=== PATIENT | male | born 1950 | race Caucasian/White ===

== ENCOUNTER → 2019-11-12 10:15 | Outpatient (CLI) | payer MEDICARE, OTHER, SELFPAY ==
--- NOTE | 2019-11-12 10:17 | DI.US.S_ITS ---
PROCEDURE: US RENAL COMPLETE INDICATIONS: STRESS INCONTINENCE TECHNIQUE: Real-time scanning was performed of the kidneys and bladder, with image documentation. COMPARISON: None. FINDINGS: Kidneys: Kidneys are normal in size. Right kidney measures 11.2 cm long; left kidney measures 10.3 cm long. Right renal cortical thickness is 1.2 cm; left renal cortical thickness is 1.3 cm. Renal cortical echotexture is normal. No hydronephrosis or nephrolithiasis. No suspicious solid mass lesions. Bilateral renal cysts are noted measuring up to 1.4 cm on the right and up to 1.9 cm on the left. Bladder: Pre-void bladder volume is 288 mL. Post-void residual is zero mL. Pre-void images demonstrate no intraluminal masses or stones. On pre-void images, both of the ureteral jets are noted with color Doppler interrogation. (Of note, ureteral jets may not be detectable in up to 25% of cases due to insufficient differences in specific gravity between ureteral and bladder urine). Miscellaneous: No free pelvic fluid. IMPRESSION: Few bilateral simple appearing renal cysts as above No hydronephrosis Dictated by: Torres Rothman M.D. on 11/12/2019 at 11:36 Approved by: Torres Rothman M.D. on 11/12/2019 at 11:38
== END ==
PROVIDERS: Family Provider Family Medicine; PCP Student in an Organized Health Care Education/Training Program; Referring Provider Student in an Organized Health Care Education/Training Program; Visit Provider Student in an Organized Health Care Education/Training Program
DX: N39.3 Stress incontinence (female) (male) (principal); N28.1 Cyst of kidney, acquired
CPT/HCPCS: 76770

== ENCOUNTER → 2020-02-01 14:40 | Outpatient (CLI) | payer MEDICARE, OTHER, SELFPAY ==
[2020-02-03 09:39] LABS: COVID19 Sendout Not Detected (Not Detect)
== END ==
PROVIDERS: Family Provider Family Medicine; PCP Student in an Organized Health Care Education/Training Program; Visit Provider Physician Assistant
DX: Z11.59 Encounter for screening for other viral diseases (principal)
CPT/HCPCS: 87635

== ENCOUNTER 2020-02-04 11:59 | Day surgery (SDC) | payer MEDICARE, OTHER, SELFPAY ==
[2020-02-04] VITALS (10 sets, daily range): BP systolic 141–168; BP diastolic 88–104; PULSE 60–68; RESP 12–16; TEMP 36.4–36.6; O2SAT 93–98; BMI 25.1
[2020-02-04] MEDS: LACTATED RINGERS 1,000 ML 200 ML IV (12:12)
--- NOTE | 2020-02-04 13:10 | PM.HP.1 ---
History of Present Illness History of Present Illness Date Patient Seen: 02/04/20 Time Patient Seen: 13:10 Chief complaint: SDC Narrative: The patient presents for colorectal sreening. They had a previous colonoscopy normal 10 years ago. No personal or family history of colon cancer. On further history denies any recent gastrointestinal symptoms. No nausea, vomiting, abdominal pain, loss of appetite, unexplained weight loss, change in bowel habits, diarrhea, constipation, melena, hematochezia, or bright red blood per rectum. Patient History Medical History Actinic keratosis (Resolved) Depression (Acute) Hyperlipidemia (Acute) Hypertension (Acute) Hypothyroidism (Chronic) IPMN (intraductal papillary mucinous neoplasm) (Resolved) Obstructive sleep apnea (Chronic) Pancreatitis (Resolved 10/2015) Prostate cancer (Resolved) Seizure (Acute) Surgical History History of strabismus surgery (Resolved) History of surgery on arm (Resolved) Hx of appendectomy (Resolved) Hx of hernia repair (Resolved) Hx of surgical procedure (Resolved 03/2013) Status post hemorrhoidectomy Status post radical cystoprostatectomy Family & Social History Family History Father Heart disease Mother Cancer Sister Multiple sclerosis Social History: household members spouse Tobacco & Substance use: Smoking Status Never smoker alcohol intake current Substance Use Type does not use Meds Home Medications and Allergies Home Medications Medication Instructions Recorded Confirmed Type [id number] PO cap 03/31/18 11/04/19 History 6,000-19,000-30,000 unit capsule,delayed rel duloxetine 30 mg capsule,delayed 30 mg PO QDAY #90 cap 01/06/19 02/04/20 Rx release amlodipine 10 mg tablet 10 mg PO DAILY #90 tab 08/25/19 02/04/20 Rx omeprazole 20 mg capsule,delayed 20 mg PO DAILY 08/25/19 02/04/20 History release levothyroxine 125 mcg tablet 125 mcg PO QDAY #90 tab 09/21/19 02/04/20 Rx lamotrigine 150 mg tablet See Rx Instructions PO BID #135 tab 10/14/19 02/04/20 Rx lisinopril 20 mg tablet 20 mg PO DAILY #90 tab 12/01/19 02/04/20 Rx oxybutynin chloride 5 mg 5 mg PO DAILY #90 tab 12/21/19 02/04/20 Rx tablet,extended release 24 hr Allergies Allergy/AdvReac Type Severity Reaction Status Date / Time grass pollen-perennial rye, Allergy Unknown Verified 02/04/20 12:14 standar [grass poll-perennial rye,std] TREES Allergy Unknown Uncoded 02/04/20 12:14 Review of Systems Review of Systems Narrative: A 10 point review of systems is negative except as noted in the HPI Exam Vital Signs (past 8 hours): - 02/04/20 12:20 Temperature 97.8 F Pulse Rate 60 Respiratory Rate 16 Blood Pressure 168/88 H Pulse Oximetry 98 Oxygen Delivery Method Room Air Narrative Exam Narrative: General-no acute distress, well nourished HEENT-moist mucous membranes, no scleral icterus Neck-supple, no lymphadenopathy Chest- non labored respirations, clear to auscultation bilaterally Cardiac-regular rate no peripheral edema Abdomen-soft, nontender, non distended Extremities-warm, well perfused Neurological-alert and oriented, no focal deficits Assessment & Plan Assessment and plan (1) Screening for colon cancer: Status: Acute Assessment & Plan narrative: The patient requires colorectal screening and colonoscopy is recommended. Technical details were discussed. Risks, benefits, alternatives explained. Risks including but not limited to myocardial infarction, aspiration, bleeding, pain, missed lesion, incomplete examination, need for further radiographic studies, colonic perforation, and need for major abdominal surgery were discussed. All questions were answered to their satisfaction, and they are in agreement with this plan.
[2020-02-04] MEDS: MIDAZOLAM 5 MG/5 ML VIAL IV (13:38)
--- NOTE | 2020-02-04 13:38 | PM.OP.ENDO ---
Operative Date/Time/Diagnoses Date of procedure: 02/04/20 Time of procedure: 13:38 Pre-op diagnosis: Screening colonoscopy Post-op diagnosis: same Procedure & Clinicians Study performed: Colonoscopy Same procedure as scheduled: Yes Indications: 69-year-old male presents for a routine screening colonoscopy Surgeon: Ras Calvillo Procedure Notes SCOAP/Timeout: Performed Procedure in detail: Patient placed in left lateral recumbent position. Time out was performed. Procedural sedation was administered with Versed and Fentanyl. Examination began with a thorough inspection of the perianal area there was no evidence of fissures, fistulae, external hemorrhoids or cutaneous malignancy. The colonoscopy scope was then placed into the rectum the the lumen was insufflated with air. The scope was carefully advanced forward. Ultimately the cecum was intubated and confirmed by identification of the ileocecal valve and the confluence of the taenia. The scope was then slowly withdrawn examining colon thoroughly in all directions. In the rectum the rectal columns were identified and retroflexion of the scope was performed for inspection of the distal rectum and anal canal. The colonoscopy was notable for the followin. Quality of the preparation-fair 2. Sigmoid diverticulosis 3. No masses or polyps Scope withdrawal time: 7 Sedation minutes: 20 Findings: diverticulosis Specimen(s): none sent Complications: none Impression: Diverticulosis Post-procedure Recommendations: Colonscopy in 10 years Disposition: same day surgery
[2020-02-04] MEDS: fentaNYL 250 MCG/5 ML INJ IV (13:39)
--- NOTE | 2020-02-04 13:59 | SUR.PHASEI ---
Patient denies pain/nausea. Tolerating po. Abdomen soft. VSS.
--- NOTE | 2020-02-04 14:56 | SUR.PHASEII ---
Assumed care from Silvia for transportation out, d/c instructions discussed with both pt and , both vopiced an understanding, pt left in stable condition.
== END 2020-02-04 14:40 | disposition home or self-care (01) ==
PROVIDERS: Family Provider Family Medicine; PCP Student in an Organized Health Care Education/Training Program; Referring Provider Student in an Organized Health Care Education/Training Program; Visit Provider Surgery
PROC: 0DJD8ZZ Inspection of Lower Intestinal Tract, Via Natural or Artificial Opening Endoscopic (ICD-10-PCS; CPT 45378; principal; 2020-02-04 13:00)
DX: Z12.11 Encounter for screening for malignant neoplasm of colon (principal); F32.9 Major depressive disorder, single episode, unspecified; E78.5 Hyperlipidemia, unspecified; I10 Essential (primary) hypertension; G47.33 Obstructive sleep apnea (adult) (pediatric); R56.9 Unspecified convulsions; K57.30 Diverticulosis of large intestine without perforation or abscess without bleeding
CPT/HCPCS: G0121; 99152; J2250; J3010

== ENCOUNTER → 2020-06-29 08:30 | Outpatient (CLI) | payer MEDICARE, OTHER, SELFPAY ==
[2020-06-29 12:00] LABS: COVID19 -Nasal RAPID Negative (Negative)
== END ==
PROVIDERS: Family Provider Family Medicine; PCP Student in an Organized Health Care Education/Training Program; Visit Provider Nurse Practitioner
DX: Z20.822 Contact with and (suspected) exposure to COVID-19 (principal)
CPT/HCPCS: 87635; C9803

== ENCOUNTER 2020-07-27 11:36 | Emergency (ER) | payer MEDICARE, OTHER, SELFPAY ==
[2020-07-27 11:40] VITALS: BP 171/89; PULSE 67; RESP 14; TEMP 36.6; O2SAT 97; BMI 25.1
[2020-07-27 11:41] VITALS: O2SAT 99
[2020-07-27 11:42] VITALS: BP 171/89; PULSE 82; O2SAT 98
[2020-07-27 11:56] LABS: Bacteria Urine None Seen; WBC Urine None Seen (0-5/HPF)
[2020-07-27 11:58] LABS: Appearance Urine UA CLEAR; Bilirubin Urine UA NEGATIVE (NEGATIVE); Color Urine UA YELLOW; Glucose Urine UA NEGATIVE (Negative); Ketones Urine UA NEGATIVE (NEGATIVE); Leukocyte Esterase Urine UA NEGATIVE (NEGATIVE); Nitrite Urine UA NEGATIVE (Negative); Occult Blood Urine UA 3+ (Negative); Protein Urine UA NEGATIVE (Negative); Urobilinogen Urine UA 0.2 E.U./dL (0.2); pH Urine UA 6.5 (4.5-8.0)
--- NOTE | 2020-07-27 12:00 | ED.MALEGU ---
HPI - Male Genitourinary <RAJESH Hope - Last Filed: 07/27/20 15:38> General Chief complaint: Urogenital-Male Stated complaint: Blood in urine, sent by physician Time Seen by Provider: 07/27/20 11:39 Source: patient Mode of arrival: Ambulatory Limitations: no limitations History of Present Illness HPI Narrative: The patient is a 69-year-old male nonsmoker with history of hypertension, prostate CA, sleep apnea who presents with a chief complaint of blood in his urine. This is been going on for the past several days. He states that he notices overall generally decreased urine output, where he urinates water twice during the day. He states he does not see blood in those urinations, but when urinates that night his urine turns bloody. He denies any dysuria urgency or frequency, denies any flank or back pain, any fevers nausea vomiting or diarrhea. He states he saw a urologist approximately 30 years ago, is not exactly sure why, later admits to history of prostate cancer and states that might be why he saw a urologist. Related Data Home Medications Medication Instructions Recorded Confirmed [id number]-ewsvxmhz-cvwtlji PO cap 03/31/18 07/28/20 6,000-19,000-30,000 unit capsule,delayed rel Previous Rx's Medication Instructions Recorded levothyroxine 125 mcg tablet 125 mcg PO QDAY #90 tab 09/21/19 lisinopril 20 mg tablet 20 mg PO DAILY #90 tab 12/01/19 oxybutynin chloride 5 mg 5 mg PO DAILY #90 tab 12/21/19 tablet,extended release 24 hr duloxetine 30 mg capsule,delayed 30 mg PO QDAY #90 cap 02/26/20 release amlodipine 10 mg tablet 10 mg PO DAILY #90 tab 03/01/20 omeprazole 20 mg capsule,delayed 20 mg PO DAILY #90 cap 03/01/20 release lamotrigine 150 mg tablet See Rx Instructions PO BID #135 tab 06/07/20 Allergies Allergy/AdvReac Type Severity Reaction Status Date / Time grass pollen-perennial rye, Allergy Unknown Verified 07/28/20 11:23 standar [grass poll-perennial rye,std] TREES Allergy Unknown Uncoded 07/28/20 11:23 Patient History <RAJESH Hope - Last Filed: 07/27/20 15:38> Medical History (Updated 07/27/20 @ 14:25 by RAJESH Hope) Actinic keratosis Depression Hyperlipidemia Hypertension Hypothyroidism IPMN (intraductal papillary mucinous neoplasm) Obstructive sleep apnea Pancreatitis (10/2015) Prostate cancer Seizure Surgical History History of strabismus surgery History of surgery on arm Hx of appendectomy Hx of hernia repair Hx of surgical procedure (03/2013) Status post hemorrhoidectomy Status post radical cystoprostatectomy Family History Father Heart disease Mother Cancer Sister Multiple sclerosis Social History household members: spouse Smoking Status: Never smoker alcohol intake: current substance use type: does not use Smoking Status: Never smoker Substance Use Type: does not use Exam <RAJESH Hope - Last Filed: 07/27/20 15:38> Initial Vital Signs Initial Vital Signs: Vital Signs Temperature 97.9 F 07/27/20 11:40 Pulse Rate 67 07/27/20 11:40 Respiratory Rate 14 07/27/20 11:40 Blood Pressure 171/89 H 07/27/20 11:40 Pulse Oximetry 97 07/27/20 11:40 <Becky Amaral DO - Last Filed: 07/28/20 19:10> Initial Vital Signs Initial Vital Signs: Vital Signs Temperature 97.9 F 07/27/20 11:40 Pulse Rate 67 07/27/20 11:40 Respiratory Rate 14 07/27/20 11:40 Blood Pressure 171/89 H 07/27/20 11:40 Pulse Oximetry 97 07/27/20 11:40 Course <RAJESH Hope - Last Filed: 07/27/20 15:38> Orders Ordered: Discontinued Medications Sodium Chloride (Normal Saline 0.9%) 1,000 mls @ 1,000 mls/hr IV BOLUS ONE Stop: 07/27/20 12:56 Last Infusion: 07/27/20 13:13 Dose: 0 mls/hr Documented by: Admin: 07/27/20 12:07 Dose: 1,000 mls/hr Documented by: FLORINA Vital Signs Vital signs: Vital Signs - 8 hr 07/27/20 11:40 07/27/20 11:41 07/27/20 11:42 Temperature 97.9 F Pulse Rate 67 82 Respiratory Rate 14 Blood Pressure 171/89 H 171/89 H Pulse Oximetry 97 99 98 07/27/20 14:31 Temperature Pulse Rate 60 Respiratory Rate 16 Blood Pressure 143/81 H Pulse Oximetry 97 <Becky Amaral DO - Last Filed: 07/28/20 19:10> Orders Ordered: Discontinued Medications Sodium Chloride (Normal Saline 0.9%) 1,000 mls @ 1,000 mls/hr IV BOLUS ONE Stop: 07/27/20 12:56 Last Infusion: 07/27/20 13:13 Dose: 0 mls/hr Documented by: Admin: 07/27/20 12:07 Dose: 1,000 mls/hr Documented by: FLORINA Vital Signs Vital signs: Vital Signs - 8 hr 07/27/20 11:40 07/27/20 11:41 07/27/20 11:42 Temperature 97.9 F Pulse Rate 67 82 Respiratory Rate 14 Blood Pressure 171/89 H 171/89 H Pulse Oximetry 97 99 98 07/27/20 14:31 Temperature Pulse Rate 60 Respiratory Rate 16 Blood Pressure 143/81 H Pulse Oximetry 97 MDM - Male Genitourinary <HERMILO Hope-BC - Last Filed: 07/27/20 15:38> Lab Data Result diagrams: 07/27/20 12:02 07/27/20 12:02 Labs: Lab Results 07/27/20 07/27/20 07/27/20 Range/Units 11:54 12:02 12:02 WBC 3.1 L (4.5-11.0) X10^3/uL RBC 4.77 (4.5-5.9) X10^6/uL Hgb 14.1 (13.5-17.5) g/dL Hct 42.0 (41-53) % MCV 88.1 (80-100) fL MCH 29.5 (26-34) PG MCHC 33.5 (30-36) % RDW 13.3 (11.6-14.8) % Plt Count 167 (150-400) X10^3/uL Neut % (Auto) 57.3 (50-75) % Lymph % (Auto) 31.8 (25-40) % Wells % (Auto) 7.9 (3-14) % Eos % (Auto) 2.4 (2-4) % Baso % (Auto) 0.6 (0-2) % Neut # (Auto) 1800 (8197-0319) /uL Lymph # (Auto) 1000 L (2718-5666) /uL Wells # (Auto) 200 (0-900) /uL Eos # (Auto) 100 (0-450) /uL Baso # (Auto) 0 (0-100) /uL Sodium 139 (137-145) mmol/L Potassium 3.5 (3.4-5.1) mmol/L Chloride 106 (98-107) mmol/L Carbon Dioxide 28 (22-32) mmol/L BUN 14 (9-20) mg/dL Creatinine 0.93 (0.66-1.25) mg/dL Estimated GFR > 60.0 (>60) mL/min BUN/Creatinine Ratio 15.1 (6-22) Glucose 263 H (80-110) mg/dL Calcium 9.0 (8.4-10.2) mg/dL Total Bilirubin 0.6 (0.2-1.3) mg/dL AST 26 (17-59) IU/L ALT 29 (<50) IU/L Alkaline Phosphatase 106 (38-126) U/L Total Protein 7.0 (6.3-8.2) g/dL Albumin 4.0 (3.5-5.0) g/dL Globulin 3.0 (1.7-4.1) g/dL Albumin/Globulin Ratio 1.3 (1.0-2.8) Urine Color Yellow Urine Appearance Clear Urine pH 6.5 (4.5-8.0) Ur Specific [place] 1.010 (1.000-1.035) Urine Protein Negative (Negative) Urine Glucose (UA) Negative (Negative) g/dL Urine Ketones Negative (NEGATIVE) Urine Occult Blood 3+ H (Negative) Urine Nitrate Negative (Negative) Urine Bilirubin Negative (NEGATIVE) Urine Urobilinogen 0.2 (0.2) E.U./dL Ur Leukocyte Esterase Negative (NEGATIVE) Urine RBC 10-30/hpf H (0-5/HPF) Urine WBC None seen (0-5/HPF) Urine Bacteria None seen (None) Ur Culture Indicated? Cult not indicated Imaging Data CT scan - abdomen/pelvis: Radiologist's Impression: [address] [place] [id number] Scan ReportSigned Patient: Isac Mclean AMR#: [id number]: 1950Acct:[id number]/Sex: 69 / MDate of Service: 07/27/20Loc: EDAccession Number: [id number] Procedure: CT kidney ureter bladder (KUB) Ordering Provider: Becky Tavarez [employer] LAW CLERK-BC PROCEDURE: CT KIDNEY URETER BLADDER (KUB) INDICATIONS: hematuria, hx prostate ca TECHNIQUE: Noncontrast 5 mm thick sections acquired from the diaphragms to the symphysis. 5 mm thick coronal and sagittal reformats were then performed. For radiation dose reduction, the following was used: automated exposure control, adjustment of mA and/or kV according to patient size. COMPARISON: [facility], CT, ABDOMEN/PELVIS WITH CONTRAST, 10/31/2015, 13:56. [facility], US, US RENAL COMPLETE, 11/12/2019, 10:26. CT, ABDOMEN/PELVIS WITH CONTRAST, 01/13/2016, 14:16. CT, ABDOMEN/PELVIS WITH CONTRAST, 12/03/2015, 22:21. FINDINGS: Image quality: Excellent. Lung bases: Lung bases are clear. Heart size is normal. Small hiatal hernia. Urinary system: Both kidneys are normal in size. There is a 2 mm stone in the inferior pole of the right kidney. No hydronephrosis or perinephric fat stranding. Bilateral renal cysts. No ureteral stones. Both ureters appear nondilated. Bladder wall thickness is normal; no calcified bladder stones. Prostate is absent. There is a penile prosthesis. Other solid organs: Liver is normal in size. There is pneumobilia. Gallbladder is surgically absent. Question of rib postprocedure. Pancreas is somewhat atrophic. Spleen is normal in size. No adrenal nodules. Peritoneum and bowel: Unenhanced bowel loops demonstrate normal wall thickness and caliber. A moderate amount of stool in colon. No free fluid or air. Nodes and vessels: No retroperitoneal or mesenteric adenopathy by size criteria. Aorta and inferior vena cava are normal in caliber. Abdominal wall: No ventral hernias. Pelvis: No free pelvic fluid. No inguinal hernias or adenopathy. Bones: No suspicious bony lesions. No vertebral body compression fractures. IMPRESSION: 1. A 2 mm nonobstructing stone is seen in the inferior pole of the right kidney. No hydronephrosis. 2. Bilateral renal cysts. 3. Prostatectomy. A penile prosthesis is present 4. Cholecystectomy. Question of Whipple's procedure. There is pneumobilia. 5. A moderate amount stool in colon. Dictated by: Zane Rivera M.D. on 07/27/2020 at 12:56 Approved by: Zane Rivera M.D. on 07/27/2020 at 13:39 MDM Narrative Medical decision making narrative: The patient is a 69-year-old male who presents with a chief complaint of hematuria at night for the past few days. He states no hematuria during the daytime. Bladder scan showed he was not retaining any fluid. Lab work was grossly normal, normal renal function noted With creatinine of 0.9. Urine has no signs of infection, no nitrates leukocyte esterase. Help with the patient's history of cancer, CT was obtained, which shows a stone in his right kidney as well as bilateral renal cyst. Discussed case and plan with Dr Amaral. At this point encouraged follow-up with primary care provider, he may benefit from Urology. I offered to send his note to Dr. Hill, but The patient declined and stated he rather follow up with primary care provider 1st. I discussed at length strict ER return precautions including abdominal pain with fever etcetera. Patient has no questions or concerns upon discharge and states understanding of return precautions as well as follow-up care. <Becky Amaral, DO - Last Filed: 07/28/20 19:10> Lab Data Labs: Lab Results 07/27/20 07/27/20 07/27/20 Range/Units 11:54 12:02 12:02 WBC 3.1 L (4.5-11.0) X10^3/uL RBC 4.77 (4.5-5.9) X10^6/uL Hgb 14.1 (13.5-17.5) g/dL Hct 42.0 (41-53) % MCV 88.1 (80-100) fL MCH 29.5 (26-34) PG MCHC 33.5 (30-36) % RDW 13.3 (11.6-14.8) % Plt Count 167 (150-400) X10^3/uL Neut % (Auto) 57.3 (50-75) % Lymph % (Auto) 31.8 (25-40) % Wells % (Auto) 7.9 (3-14) % Eos % (Auto) 2.4 (2-4) % Baso % (Auto) 0.6 (0-2) % Neut # (Auto) 1800 (9927-1518) /uL Lymph # (Auto) 1000 L (7954-2468) /uL Wells # (Auto) 200 (0-900) /uL Eos # (Auto) 100 (0-450) /uL Baso # (Auto) 0 (0-100) /uL Sodium 139 (137-145) mmol/L Potassium 3.5 (3.4-5.1) mmol/L Chloride 106 (98-107) mmol/L Carbon Dioxide 28 (22-32) mmol/L BUN 14 (9-20) mg/dL Creatinine 0.93 (0.66-1.25) mg/dL Estimated GFR > 60.0 (>60) mL/min BUN/Creatinine Ratio 15.1 (6-22) Glucose 263 H (80-110) mg/dL Calcium 9.0 (8.4-10.2) mg/dL Total Bilirubin 0.6 (0.2-1.3) mg/dL AST 26 (17-59) IU/L ALT 29 (<50) IU/L Alkaline Phosphatase 106 (38-126) U/L Total Protein 7.0 (6.3-8.2) g/dL Albumin 4.0 (3.5-5.0) g/dL Globulin 3.0 (1.7-4.1) g/dL Albumin/Globulin Ratio 1.3 (1.0-2.8) Urine Color Yellow Urine Appearance Clear Urine pH 6.5 (4.5-8.0) Ur Specific [place] 1.010 (1.000-1.035) Urine Protein Negative (Negative) Urine Glucose (UA) Negative (Negative) g/dL Urine Ketones Negative (NEGATIVE) Urine Occult Blood 3+ H (Negative) Urine Nitrate Negative (Negative) Urine Bilirubin Negative (NEGATIVE) Urine Urobilinogen 0.2 (0.2) E.U./dL Ur Leukocyte Esterase Negative (NEGATIVE) Urine RBC 10-30/hpf H (0-5/HPF) Urine WBC None seen (0-5/HPF) Urine Bacteria None seen (None) Ur Culture Indicated? Cult not indicated Discharge Plan Departure Patient Disposition: Home Clinical Impression: Kidney stone on right side, Bilateral renal cysts Hematuria Qualifiers: Hematuria type: asymptomatic microscopic Qualified Code(s): R31.21 - Asymptomatic microscopic hematuria Instructions: DI for Kidney Stones, DI for Hematuria Activity Restrictions/Additional Instructions: Thank you for trusting us with your care today. As discussed, urine does not have any signs of infection, but there is microscopic blood. Your kidney function is good. Your CT does show evidence of a stone in your kidney as well as cysts in both of your kidneys please follow-up with primary care provider in the next few days. Please push fluids. Please come back to the emergency department for any acute concerns including inability to pass urine, abdominal pain with fever etcetera. You may benefit from seeing a urologist. I have given you contact information to Dr. Hill, our urologist at [facility] Prescriptions: No Action [id number] [Creon] 6,000-19,000 -30,000 unit capsule,delayed release(DR/EC) PO RF: 0 levothyroxine [Synthroid] 125 mcg tablet 125 mcg PO QDAY Qty: 90 RF: 3 lisinopril 20 mg tablet 20 mg PO DAILY Qty: 90 RF: 3 oxybutynin chloride 5 mg tablet extended release 24hr 5 mg PO DAILY Qty: 90 RF: 3 duloxetine [Cymbalta] 30 mg capsule,delayed release(DR/EC) 30 mg PO QDAY Qty: 90 RF: 3 amlodipine 10 mg tablet 10 mg PO DAILY Qty: 90 RF: 1 omeprazole 20 mg capsule,delayed release(DR/EC) 20 mg PO DAILY Qty: 90 RF: 1 lamotrigine [Lamictal] 150 mg tablet See Rx Instructions PO BID Qty: 135 RF: 1 Referrals: Enio Perales MD [Primary Care Provider] - Alexey Hill MD [Physician] - <Becky Amaral DO - Last Filed: 07/28/20 19:10> Cosign ED Attending Cosignature Attestation: I was immediately available in the department for consultation. Documentation has been reviewed.
[2020-07-27 12:03] LABS: Culture Indicated Urine Cult Not Indicated; RBC Urine 10-30/HPF (0-5/HPF)
[2020-07-27] MEDS: SODIUM CHLORIDE 0.9% 1,000 ML 1000 ML IV (12:07)
[2020-07-27 12:10] LABS: Add Manual Diff / Slide Review NO; Basophils Absolute Auto 0 /uL (0-100); Basophils Percent Auto 0.6 % (0-2); Eosinophils Absolute Auto 100 /uL (0-450); Eosinophils Percent Auto 2.4 % (2-4); Hemoglobin 14.1 g/dL (13.5-17.5); Lymphocytes Absolute Auto 1000 /uL (1100-4500); Lymphocytes Percent Auto 31.8 % (25-40); Mean Corpuscular HGB Conc 33.5 % (30-36); Mean Corpuscular Hemoglobin 29.5 PG (26-34); Mean Corpuscular Volume 88.1 fL (80-100); Monocytes Absolute Auto 200 /uL (0-900); Monocytes Percent Auto 7.9 % (3-14); Neutrophils Absolute Auto 1800 /uL (1500-7000); Neutrophils Percent Auto 57.3 % (50-75); Platelet Count 167 X10^3/uL (150-400); Red Blood Cell Count 4.77 X10^6/uL (4.5-5.9); Red Cell Distribution Width 13.3 % (11.6-14.8); White Blood Cell Count 3.1 X10^3/uL (4.5-11.0)
[2020-07-27 12:20] LABS: Alanine Aminotransferase 29 IU/L (<50); Albumin Globulin Ratio 1.3 (1.0-2.8); Alkaline Phosphatase 106 U/L (38-126); Aspartate Aminotransferase 26 IU/L (17-59); BUN Creatinine Ratio 15.1 (6-22); Bilirubin Total 0.6 mg/dL (0.2-1.3); Blood Urea Nitrogen 14 mg/dL (9-20); Carbon Dioxide 28 mmol/L (22-32); Chloride 106 mmol/L (98-107); Estimated Glomerular Filt Rate > 60.0 mL/min (>60); Glucose 263 mg/dL (80-110); HEMOLYSIS < 15 (0-50); Potassium 3.5 mmol/L (3.4-5.1); Sodium 139 mmol/L (137-145)
--- NOTE | 2020-07-27 12:49 | DI.CT.S_ITS ---
PROCEDURE: CT KIDNEY URETER BLADDER (KUB) INDICATIONS: hematuria, hx prostate ca TECHNIQUE: Noncontrast 5 mm thick sections acquired from the diaphragms to the symphysis. 5 mm thick coronal and sagittal reformats were then performed. For radiation dose reduction, the following was used: automated exposure control, adjustment of mA and/or kV according to patient size. COMPARISON: [facility], CT, ABDOMEN/PELVIS WITH CONTRAST, 10/31/2015, 13:56. [facility], US, US RENAL COMPLETE, 11/12/2019, 10:26. CT, ABDOMEN/PELVIS WITH CONTRAST, 01/13/2016, 14:16. CT, ABDOMEN/PELVIS WITH CONTRAST, 12/03/2015, 22:21. FINDINGS: Image quality: Excellent. Lung bases: Lung bases are clear. Heart size is normal. Small hiatal hernia. Urinary system: Both kidneys are normal in size. There is a 2 mm stone in the inferior pole of the right kidney. No hydronephrosis or perinephric fat stranding. Bilateral renal cysts. No ureteral stones. Both ureters appear nondilated. Bladder wall thickness is normal; no calcified bladder stones. Prostate is absent. There is a penile prosthesis. Other solid organs: Liver is normal in size. There is pneumobilia. Gallbladder is surgically absent. Question of rib postprocedure. Pancreas is somewhat atrophic. Spleen is normal in size. No adrenal nodules. Peritoneum and bowel: Unenhanced bowel loops demonstrate normal wall thickness and caliber. A moderate amount of stool in colon. No free fluid or air. Nodes and vessels: No retroperitoneal or mesenteric adenopathy by size criteria. Aorta and inferior vena cava are normal in caliber. Abdominal wall: No ventral hernias. Pelvis: No free pelvic fluid. No inguinal hernias or adenopathy. Bones: No suspicious bony lesions. No vertebral body compression fractures. IMPRESSION: 1. A 2 mm nonobstructing stone is seen in the inferior pole of the right kidney. No hydronephrosis. 2. Bilateral renal cysts. 3. Prostatectomy. A penile prosthesis is present 4. Cholecystectomy. Question of Whipple's procedure. There is pneumobilia. 5. A moderate amount stool in colon. Dictated by: Zane Rivera M.D. on 07/27/2020 at 12:56 Approved by: Zane Rivera M.D. on 07/27/2020 at 13:39
[2020-07-27 14:31] VITALS: BP 143/81; PULSE 60; RESP 16; O2SAT 97
== END 2020-07-27 14:31 | disposition home or self-care (01) ==
PROVIDERS: Emergency Provider Nurse Practitioner Family; Family Provider Family Medicine; PCP Student in an Organized Health Care Education/Training Program
DX: N20.0 Calculus of kidney (principal); N28.1 Cyst of kidney, acquired; R31.21 Asymptomatic microscopic hematuria; I10 Essential (primary) hypertension; Z85.46 Personal history of malignant neoplasm of prostate; R33.9 Retention of urine, unspecified; E78.5 Hyperlipidemia, unspecified; E03.9 Hypothyroidism, unspecified
CPT/HCPCS: 36415; 51798; 74176; 80053; 81001; 85025; 96360; 99283; 99284; Q9967

== ENCOUNTER → 2020-08-11 11:44 | Outpatient (CLI) | payer MEDICARE, OTHER, SELFPAY ==
[2020-08-11 11:50] LABS: Bacteria Urine None Seen; RBC Urine None Seen (0-5/HPF); WBC Urine None Seen (0-5/HPF)
[2020-08-11 12:17] LABS: Appearance Urine UA CLEAR; Bilirubin Urine UA NEGATIVE (NEGATIVE); Color Urine UA YELLOW; Glucose Urine UA NEGATIVE (Negative); Ketones Urine UA NEGATIVE (NEGATIVE); Leukocyte Esterase Urine UA NEGATIVE (NEGATIVE); Nitrite Urine UA NEGATIVE (Negative); Occult Blood Urine UA NEGATIVE (Negative); Protein Urine UA NEGATIVE (Negative); Specific Gravity Urine UA 1.015 (1.000-1.035); Urobilinogen Urine UA 0.2 E.U./dL (0.2); pH Urine UA 6.5 (4.5-8.0)
[2020-08-11 12:44] LABS: Culture Indicated Urine Cult Not Indicated; Urine Comments Microscopic Normal
== END ==
PROVIDERS: Family Provider Family Medicine; PCP Student in an Organized Health Care Education/Training Program; Referring Provider Student in an Organized Health Care Education/Training Program; Visit Provider Student in an Organized Health Care Education/Training Program
DX: N20.0 Calculus of kidney (principal)
CPT/HCPCS: 81001

== ENCOUNTER → 2021-03-29 11:18 | Outpatient (CLI) | payer MEDICARE, OTHER, SELFPAY ==
[2021-04-04 19:20] LABS: Pancreatic Elastase, Fecal <50 (>200)
== END ==
PROVIDERS: Family Provider Family Medicine; PCP Student in an Organized Health Care Education/Training Program; Referring Provider Physician Assistant Medical; Visit Provider Physician Assistant Medical
DX: K86.89 Other specified diseases of pancreas (principal)
CPT/HCPCS: 82656

== ENCOUNTER → 2021-09-26 08:50 | Outpatient (CLI) | payer MEDICARE, OTHER, SELFPAY ==
[2021-09-26 11:13] LABS: Hemoglobin A1C% w Est Avg Glu 11.9 % (4.0-6.0)
[2021-09-26 12:07] LABS: Glucose 221 mg/dL (80-110)
[2021-09-27 06:34] LABS: C Peptide 1.5 ng/mL (1.1-4.4); Insulin Level Total 4.7 uIU/mL (2.6-24.9)
== END ==
PROVIDERS: Family Provider Family Medicine; PCP Student in an Organized Health Care Education/Training Program; Referring Provider Student in an Organized Health Care Education/Training Program; Visit Provider Student in an Organized Health Care Education/Training Program
DX: R73.9 Hyperglycemia, unspecified (principal); S36.209A Unspecified injury of unspecified part of pancreas, initial encounter; Z90.410 Acquired total absence of pancreas; Z90.49 Acquired absence of other specified parts of digestive tract
CPT/HCPCS: 36415; 82947; 83036; 83525; 84681

== ENCOUNTER → 2021-11-29 14:35 | Outpatient (CLI) | payer MEDICARE, OTHER, SELFPAY ==
[2021-11-29 16:47] LABS: Add Manual Diff / Slide Review NO; Basophils Absolute Auto 0 /uL (0-100); Basophils Percent Auto 0.6 % (0-2); Eosinophils Absolute Auto 100 /uL (0-450); Eosinophils Percent Auto 1.8 % (2-4); Hematocrit 37.9 % (41-53); Hemoglobin 13.4 g/dL (13.5-17.5); Lymphocytes Absolute Auto 1100 /uL (1100-4500); Lymphocytes Percent Auto 26.9 % (25-40); Mean Corpuscular HGB Conc 35.4 % (30-36); Mean Corpuscular Hemoglobin 30.9 PG (26-34); Mean Corpuscular Volume 87.2 fL (80-100); Monocytes Absolute Auto 200 /uL (0-900); Monocytes Percent Auto 4.7 % (3-14); Neutrophils Absolute Auto 2700 /uL (1500-7000); Platelet Count 192 X10^3/uL (150-400); Red Blood Cell Count 4.35 X10^6/uL (4.5-5.9); Red Cell Distribution Width 14.1 % (11.6-14.8)
[2021-11-29 17:55] LABS: Alanine Aminotransferase 17 IU/L (<50); Albumin 4.2 g/dL (3.5-5.0); Albumin Globulin Ratio 1.5 (1.0-2.8); Alkaline Phosphatase 62 U/L (38-126); Aspartate Aminotransferase 20 IU/L (17-59); BUN Creatinine Ratio 19.1 (6-22); Bilirubin Total 0.5 mg/dL (0.2-1.3); Blood Urea Nitrogen 18 mg/dL (9-20); Calcium 9.1 mg/dL (8.4-10.2); Carbon Dioxide 28 mmol/L (22-32); Chloride 104 mmol/L (98-107); Estimated Glomerular Filt Rate > 60 mL/min (>60); Globulin 2.8 g/dL (1.7-4.1); Glucose 183 mg/dL (80-110); HEMOLYSIS < 15 (0-50); Potassium 4.3 mmol/L (3.4-5.1); Sodium 141 mmol/L (137-145)
[2021-11-29 18:20] LABS: Carcinoembryonic Antigen 0.8 ng/mL (0.1-3.0)
[2021-11-30 06:56] LABS: Cancer (Carbohydrate) Ag 19-9 22 U/mL (0-35)
[2021-11-30 08:57] LABS: Fructosamine 297 umol/L (0-285)
== END ==
PROVIDERS: Surgery; Family Provider Family Medicine; PCP Student in an Organized Health Care Education/Training Program
DX: I10 Essential (primary) hypertension; D49.0 Neoplasm of unspecified behavior of digestive system; K86.2 Cyst of pancreas; E13.9 Other specified diabetes mellitus without complications; S36.209S Unspecified injury of unspecified part of pancreas, sequela
CPT/HCPCS: 36415; 80053; 82378; 82985; 85025; 86301

== ENCOUNTER → 2021-12-06 12:48 | Outpatient (CLI) | payer MEDICARE, OTHER, SELFPAY ==
[2021-12-06 16:22] LABS: Creatinine Urine Random 185.1 mg/dL
[2021-12-06 16:26] LABS: Microalbumi Creatinin Ratio Ur 37.8 ug/mg CR (<30)
== END ==
PROVIDERS: Family Provider Family Medicine; PCP Student in an Organized Health Care Education/Training Program; Referring Provider Student in an Organized Health Care Education/Training Program; Visit Provider Student in an Organized Health Care Education/Training Program
DX: S36.209S Unspecified injury of unspecified part of pancreas, sequela (principal); E13.9 Other specified diabetes mellitus without complications
CPT/HCPCS: 82043; 82570

== ENCOUNTER → 2022-08-16 15:21 | Outpatient (CLI) | payer MEDICARE, OTHER, SELFPAY ==
[2022-08-16 16:14] LABS: BUN Creatinine Ratio 18.3 (6-22); Blood Urea Nitrogen 17 mg/dL (9-20); Calcium 9.5 mg/dL (8.4-10.2); Carbon Dioxide 27 mmol/L (22-32); Chloride 103 mmol/L (98-107); Estimated Glomerular Filt Rate > 60 mL/min (>60); Glucose 152 mg/dL (80-110); HEMOLYSIS < 15 (0-50); Potassium 4.2 mmol/L (3.4-5.1); Sodium 140 mmol/L (137-145)
[2022-08-16 16:16] LABS: Hemoglobin A1C% w Est Avg Glu 7.9 % (4.0-6.0)
[2022-08-16 16:48] LABS: TSH w/ Reflex to FT4 2.64 uIU/mL (0.47-4.68)
== END ==
PROVIDERS: Family Provider Family Medicine; PCP Student in an Organized Health Care Education/Training Program; Referring Provider Student in an Organized Health Care Education/Training Program; Visit Provider Student in an Organized Health Care Education/Training Program
DX: E13.9 Other specified diabetes mellitus without complications (principal); I10 Essential (primary) hypertension; S36.209S Unspecified injury of unspecified part of pancreas, sequela; E03.9 Hypothyroidism, unspecified
CPT/HCPCS: 36415; 80048; 83036; 84443

== ENCOUNTER → 2022-08-17 08:22 | Outpatient (CLI) | payer MEDICARE, OTHER, SELFPAY ==
[2022-08-17 11:01] LABS: Creatinine Urine Random 112.3 mg/dL
[2022-08-17 11:04] LABS: Microalbumi Creatinin Ratio Ur 30.2 ug/mg CR (<30); Microalbumin Urine Random 3.4 mg/dL (0-1.6)
== END ==
PROVIDERS: Family Provider Family Medicine; PCP Student in an Organized Health Care Education/Training Program; Referring Provider Student in an Organized Health Care Education/Training Program; Visit Provider Student in an Organized Health Care Education/Training Program
DX: R80.9 Proteinuria, unspecified (principal)
CPT/HCPCS: 82043; 82570

== ENCOUNTER → 2022-12-06 08:05 | Outpatient (CLI) | payer MEDICARE, OTHER, SELFPAY ==
[2022-12-06 09:58] LABS: BUN Creatinine Ratio 15.7 (6-22); Blood Urea Nitrogen 16 mg/dL (9-20); Calcium 9.2 mg/dL (8.4-10.2); Carbon Dioxide 28 mmol/L (22-32); Chloride 104 mmol/L (98-107); Cholesterol 158 mg/dL (140-199); Estimated Glomerular Filt Rate > 60 mL/min (>60); Glucose 86 mg/dL (80-110); HDL Cholesterol 26 mg/dL (40-60); HEMOLYSIS < 15 (0-50); LDL Cholesterol Calculated 93 mg/dL (<100); Sodium 140 mmol/L (137-145); Triglycerides 195 mg/dL (35-150)
[2022-12-06 10:34] LABS: Hep C Virus Ab w/Reflex Quant NEGATIVE s/c (NEGATIVE)
[2022-12-06 10:46] LABS: Creatinine Urine Random 78.8 mg/dL
[2022-12-06 10:52] LABS: Microalbumi Creatinin Ratio Ur 15.2 ug/mg CR (<30); Microalbumin Urine Random 1.2 mg/dL (0-1.6)
[2022-12-07 03:05] LABS: Labcorp Hemoglobin (Hb) A1c 6.2 % (4.8-5.6)
== END ==
PROVIDERS: Family Provider Family Medicine; PCP Pediatrics; Referring Provider Student in an Organized Health Care Education/Training Program; Visit Provider Student in an Organized Health Care Education/Training Program
DX: E13.9 Other specified diabetes mellitus without complications (principal); I10 Essential (primary) hypertension; R80.9 Proteinuria, unspecified; S36.209S Unspecified injury of unspecified part of pancreas, sequela; Z11.59 Encounter for screening for other viral diseases
CPT/HCPCS: 80048; 80061; 82043; 82570; 83036; 86803

== ENCOUNTER 2023-01-07 19:13 | Emergency (ER) | payer MEDICARE, OTHER, SELFPAY ==
[2023-01-07] VITALS (9 sets, daily range): BP systolic 155–216; BP diastolic 86–107; PULSE 64–81; RESP 15–27; TEMP 36.3; O2SAT 91–99; BMI 25.1
--- NOTE | 2023-01-07 19:25 | DI.RAD.S_ITS ---
PROCEDURE: XR CHEST 1V INDICATIONS: chest pain TECHNIQUE: One view of the chest was acquired. COMPARISON: [facility], , CHEST 1 VIEW, 12/03/2015, 21:09. FINDINGS: Surgical changes and devices: None. Lungs and pleura: Lungs are clear. No pleural effusions or pneumothorax. Mediastinum: Mediastinal contours appear normal. Heart size is enlarged. Bones and chest wall: No suspicious bony lesions. Overlying soft tissues appear unremarkable. IMPRESSION: No acute pulmonary process. Dictated by: Latisha Guo M.D. on 01/07/2023 at 20:00 Approved by: Latisha Guo M.D. on 01/07/2023 at 20:00
[2023-01-07 19:53] LABS: Prothrombin Time 11.5 SECONDS (10.1-12.7)
[2023-01-07 19:55] LABS: PTT Partial Thromboplastin Tim 49 SECONDS (26-36)
[2023-01-07 19:58] LABS: Alanine Aminotransferase 22 IU/L (<50); Albumin 4.4 g/dL (3.5-5.0); Albumin Globulin Ratio 1.5 (1.0-2.8); Alkaline Phosphatase 65 U/L (38-126); Aspartate Aminotransferase 23 IU/L (17-59); BUN Creatinine Ratio 17.1 (6-22); Bilirubin Total 0.4 mg/dL (0.2-1.3); Blood Urea Nitrogen 18 mg/dL (9-20); Calcium 9.2 mg/dL (8.4-10.2); Carbon Dioxide 25 mmol/L (22-32); Chloride 104 mmol/L (98-107); Creatine Kinase 28 U/L (55-170); Estimated Glomerular Filt Rate > 60 mL/min (>60); Glucose 156 mg/dL (80-110); HEMOLYSIS < 15 (0-50); Lipase 17 U/L (23-300); Magnesium 1.8 mg/dL (1.6-2.3); Potassium 4.1 mmol/L (3.4-5.1); Sodium 140 mmol/L (137-145); Total Protein 7.4 g/dL (6.3-8.2)
[2023-01-07 20:04] LABS: Add Manual Diff / Slide Review NO; Basophils Absolute Auto 0 /uL (0-100); Basophils Percent Auto 0.4 % (0-2); Eosinophils Absolute Auto 100 /uL (0-450); Eosinophils Percent Auto 2.1 % (2-4); Hematocrit 41.2 % (41-53); Hemoglobin 14.4 g/dL (13.5-17.5); Lymphocytes Absolute Auto 1100 /uL (1100-4500); Lymphocytes Percent Auto 28.3 % (25-40); Mean Corpuscular Hemoglobin 30.8 PG (26-34); Monocytes Absolute Auto 200 /uL (0-900); Monocytes Percent Auto 5.5 % (3-14); Neutrophils Absolute Auto 2500 /uL (1500-7000); Neutrophils Percent Auto 63.7 % (50-75); Platelet Count 198 X10^3/uL (150-400); Red Blood Cell Count 4.68 X10^6/uL (4.5-5.9); Red Cell Distribution Width 13.6 % (11.6-14.8); White Blood Cell Count 3.9 X10^3/uL (4.5-11.0)
[2023-01-07 20:09] LABS: Troponin I 0.017 ng/mL (0.01-0.034)
--- NOTE | 2023-01-07 20:15 | PC.NURSE ---
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
--- NOTE | 2023-01-07 20:29 | ED_ITS ---
HPI - Chest Pain <Herber LindoDO - Last Filed: 01/09/23 01:20> General Chief Complaint: Chest Pain Stated Complaint: Chest/arm pain, SOB, High BP Time Seen by Provider: 01/07/23 19:53 Source: patient Mode of arrival: Family Vehicle History of Present Illness HPI narrative: 72-year-old male nonsmoker with history of hypertension, diabetes, hyperlipidemia and seizure disorder presents with his in the chief complaint of waves of chest pain over the past few weeks. Initially with exertion and increasingly frequent. He was awoken from sleep last night and had a recent episode prior to his arrival. At its most intense the pressure was an 8/10 and thankfully his symptoms have improved and he is asymptomatic on arrival. He does state that over the past few weeks it seems to be happening with increasing frequency, severity induration and he has had a few episodes while at rest. He denies fever or chills. He is not dizzy nor weak or lightheaded. Denies any history of the same and has never had a stress test. Related Data Home Medications Medication Instructions Recorded Confirmed [id number] PO 03/31/18 12/07/22 6,000-19,000-30,000 unit capsule,delayed rel (Creon) Previous Rx's Medication Instructions Recorded levothyroxine 125 mcg tablet 125 mcg PO QDAY #90 tabs 02/19/22 (Synthroid) omeprazole 20 mg capsule,delayed 20 mg PO DAILY #90 caps 04/23/22 release metformin 1,000 mg tablet,extended 1,000 mg PO BID #180 tabs 08/16/22 release 24hr glipizide 10 mg tablet, extended 10 mg PO DAILY #90 tabs 08/17/22 release 24 hr oxybutynin chloride 5 mg 5 mg PO DAILY #90 tabs 10/17/22 tablet,extended release 24 hr lisinopril 20 mg tablet 20 mg PO DAILY #90 tabs 11/05/22 amlodipine 10 mg tablet 10 mg PO DAILY #90 tabs 12/03/22 duloxetine 30 mg capsule,delayed See Rx Instructions .Route 12/24/22 release .COMPLEX #90 caps lamotrigine 150 mg tablet See Rx Instructions .Route 01/08/23 .COMPLEX #135 tabs Allergies Allergy/AdvReac Type Severity Reaction Status Date / Time grass pollen-perennial rye, Allergy Unknown Verified 12/07/22 11:14 standar [grass poll-perennial rye,std] TREES Allergy Unknown Uncoded 12/07/22 11:14 Review of Systems <Herber Lindo DO - Last Filed: 01/09/23 01:20> Review of Systems Narrative: GENERAL: Denies chills, fatigue, malaise, fever, sweats. HEENT: Denies sinus pain, ear pain, sore throat, difficulty swallowing, dizziness. RESPIRATORY: Denies dyspnea, cough, wheezing, hemoptysis, sputum. CARDIOVASCULAR: See HPI GASTROINTESTINAL: Denies nausea, vomiting, abdominal pain, diarrhea, constipation, melena. : Denies dysuria, frequency, incontinence, hematuria, urinary retention. MUSCULOSKELETAL: denies weakness, joint pain, or bony pain SKIN: Denies rash, skin lesions, or other NEUROLOGIC: Denies weakness, headache, numbness, change in speech, confusion, seizures, incoordination. PSYCHIATRIC: No concerning psychosocial issues. 12 point review of systems is negative except for those stated above Patient History <Herber Lindo DO - Last Filed: 01/09/23 01:20> Medical History Actinic keratosis Depression History of malignant neoplasm of prostate (06/20/17) Hyperlipidemia Hypertension Hypothyroidism IPMN (intraductal papillary mucinous neoplasm) Obstructive sleep apnea Pancreatitis (10/2015) Prostate cancer Seizure Surgical History History of strabismus surgery History of surgery on arm Hx of appendectomy Hx of hernia repair Hx of surgical procedure (03/2013) Status post hemorrhoidectomy Status post radical cystoprostatectomy Family History Father Heart disease Mother Cancer Sister Multiple sclerosis Social History household members: spouse Smoking Status: Never smoker alcohol intake: current substance use type: does not use Smoking Status: Never smoker alcohol intake frequency: a few times a week Substance Use Type: does not use Exam <Herber Lindo DO - Last Filed: 01/09/23 01:20> Narrative Exam Narrative: GENERAL: [72] year old patient appears stated age. Well-developed patient, in mild distress. HEAD: Atraumatic. Normocephalic. EYES: Pupils equal round and reactive. Extraocular motions intact. No scleral icterus. No injection or drainage. ENT: Nose without bleeding, purulent drainage. Throat without erythema, tonsillar hypertrophy or exudate. Airway patent. NECK: Trachea midline. Non tender CARDIOVASCULAR: Regular rate and rhythm without murmurs, gallops, or rubs. RESPIRATORY: Clear to auscultation. Breath sounds equal bilaterally. No wheezes, rales, or rhonchi. GASTROINTESTINAL: Abdomen soft, non-tender, nondistended. EXTREMITIES: No edema or joint tenderness. BACK: Nontender without deformity or crepitance. No flank tenderness. NEURO: AOx3. SKIN: No rash or erythema of visible areas Initial Vital Signs Initial Vital Signs: Vital Signs Temperature 97.4 F L 01/07/23 19:22 Pulse Rate 69 01/07/23 19:22 Respiratory Rate 16 01/07/23 19:22 Blood Pressure 183/92 H 01/07/23 19:22 Pulse Oximetry 99 01/07/23 19:22 Oxygen Delivery Method Room Air 01/07/23 19:22 <Choco Rodgers MD - Last Filed: 01/09/23 06:52> Initial Vital Signs Initial Vital Signs: Vital Signs Temperature 97.4 F L 01/07/23 19:22 Pulse Rate 69 01/07/23 19:22 Respiratory Rate 16 01/07/23 19:22 Blood Pressure 183/92 H 01/07/23 19:22 Pulse Oximetry 99 01/07/23 19:22 Oxygen Delivery Method Room Air 01/07/23 19:22 Scores <Herber Lindo DO - Last Filed: 01/09/23 01:20> HEART Score Heart Score history: Highly Suspicious Heart Score EKG: Non-Specific repolarization disturbance Heart Score Age: > or = 65 years old Heart Score risk factors: > 3 risk factors or hx of atherosclerotic disease Heart Score troponin: < or = to normal limit Heart Score Total: 7 <Choco Rodgers MD - Last Filed: 01/09/23 06:52> HEART Score Heart Score Total: 7 Course <Herber Lindo DO - Last Filed: 01/09/23 01:20> Orders Ordered: Discontinued Medications Aspirin (Aspirin 81 Mg Chew Tab) 324 mg PO NOW ONE Stop: 01/07/23 19:26 Last Admin: 01/07/23 22:00 Dose: 324 mg Documented By: ONDINA Nitroglycerin (Nitroglycerin 0.4 Mg Sl Tab) 0.4 mg SL [id number] PRN PRN Reason: Chest Pain Last Admin: 01/08/23 12:56 Dose: 0.4 mg Documented By: Admin: 01/07/23 22:35 Dose: 0.4 mg Documented By: ONDINA Nitroglycerin (Nitroglycerin Oint 1 Inch/Gm Oint...G.) 0.5 inch TOP NOW ONE Stop: 01/08/23 11:14 Last Admin: 01/08/23 11:17 Dose: 0.5 inch Documented By: CARA Consultations Consultation #1: discussed with Dr. Dailey ([facility] Cardiology). After discussing the patient's recent medical history including history and physical exam today, labs and EKGs he sure the opinion that the story is quite concerning and recommends transfer to [facility] for cardiology evaluation. Vital Signs Vital signs: Vital Signs - 8 hr 01/08/23 05:00 01/08/23 05:00 01/08/23 05:30 Pulse Rate 59 L 58 L Respiratory Rate 18 19 Blood Pressure 167/82 H Pulse Oximetry 95 94 01/08/23 06:00 01/08/23 06:00 01/08/23 07:00 Pulse Rate 58 L Respiratory Rate 27 H Blood Pressure 177/84 H 172/96 H Pulse Oximetry 95 01/08/23 07:00 01/08/23 07:30 01/08/23 08:00 Pulse Rate 57 L 61 Respiratory Rate 20 21 Blood Pressure 166/97 H Pulse Oximetry 95 94 01/08/23 08:00 01/08/23 08:30 01/08/23 09:00 Pulse Rate 58 L 57 L Respiratory Rate 20 20 Blood Pressure 152/97 H Pulse Oximetry 95 94 01/08/23 09:00 01/08/23 09:30 01/08/23 11:17 Pulse Rate 56 L 81 70 Respiratory Rate 18 33 H Blood Pressure 180/102 H Pulse Oximetry 94 01/08/23 10:00 01/08/23 10:00 01/08/23 10:36 Pulse Rate 69 73 Respiratory Rate 20 Blood Pressure 158/97 H Pulse Oximetry 07/25/23 10:38 01/08/23 10:38 01/08/23 10:40 Pulse Rate 59 L Respiratory Rate 22 Blood Pressure 207/97 H 195/103 H Pulse Oximetry 98 01/08/23 10:40 01/08/23 11:00 01/08/23 11:01 Pulse Rate 61 58 L Respiratory Rate 22 20 Blood Pressure 169/98 H Pulse Oximetry 99 97 01/08/23 11:01 01/08/23 11:19 01/08/23 11:19 Pulse Rate 60 70 Respiratory Rate 30 H 25 H Blood Pressure 180/102 H Pulse Oximetry 97 97 01/08/23 11:23 01/08/23 11:23 01/08/23 11:30 Pulse Rate 62 61 Respiratory Rate 25 H 24 Blood Pressure 183/102 H Pulse Oximetry 96 96 01/08/23 11:40 01/08/23 11:40 01/08/23 12:00 Pulse Rate 61 Respiratory Rate 24 Blood Pressure 186/94 H 183/100 H Pulse Oximetry 95 01/08/23 12:00 01/08/23 12:20 01/08/23 12:20 Pulse Rate 61 65 Respiratory Rate 21 19 Blood Pressure 172/103 H Pulse Oximetry 94 94 <Choco Rodgers MD - Last Filed: 01/09/23 06:52> Orders Ordered: Discontinued Medications Aspirin (Aspirin 81 Mg Chew Tab) 324 mg PO NOW ONE Stop: 01/07/23 19:26 Last Admin: 01/07/23 22:00 Dose: 324 mg Documented By: ONDINA Nitroglycerin (Nitroglycerin 0.4 Mg Sl Tab) 0.4 mg SL [id number] PRN PRN Reason: Chest Pain Last Admin: 01/08/23 12:56 Dose: 0.4 mg Documented By: Admin: 01/07/23 22:35 Dose: 0.4 mg Documented By: ONDINA Nitroglycerin (Nitroglycerin Oint 1 Inch/Gm Oint...G.) 0.5 inch TOP NOW ONE Stop: 01/08/23 11:14 Last Admin: 01/08/23 11:17 Dose: 0.5 inch Documented By: CARA Vital Signs Vital signs: Vital Signs - 8 hr 01/08/23 05:00 01/08/23 05:00 01/08/23 05:30 Pulse Rate 59 L 58 L Respiratory Rate 18 19 Blood Pressure 167/82 H Pulse Oximetry 95 94 01/08/23 06:00 01/08/23 06:00 01/08/23 07:00 Pulse Rate 58 L Respiratory Rate 27 H Blood Pressure 177/84 H 172/96 H Pulse Oximetry 95 01/08/23 07:00 01/08/23 07:30 01/08/23 08:00 Pulse Rate 57 L 61 Respiratory Rate 20 21 Blood Pressure 166/97 H Pulse Oximetry 95 94 01/08/23 08:00 01/08/23 08:30 01/08/23 09:00 Pulse Rate 58 L 57 L Respiratory Rate 20 20 Blood Pressure 152/97 H Pulse Oximetry 95 94 01/08/23 09:00 01/08/23 09:30 01/08/23 11:17 Pulse Rate 56 L 81 70 Respiratory Rate 18 33 H Blood Pressure 180/102 H Pulse Oximetry 94 01/08/23 10:00 01/08/23 10:00 01/08/23 10:36 Pulse Rate 69 73 Respiratory Rate 20 Blood Pressure 158/97 H Pulse Oximetry 01/08/23 10:38 01/08/23 10:38 01/08/23 10:40 Pulse Rate 59 L Respiratory Rate 22 Blood Pressure 207/97 H 195/103 H Pulse Oximetry 98 01/08/23 10:40 01/08/23 11:00 01/08/23 11:01 Pulse Rate 61 58 L Respiratory Rate 22 20 Blood Pressure 169/98 H Pulse Oximetry 99 97 01/08/23 11:01 01/08/23 11:19 01/08/23 11:19 Pulse Rate 60 70 Respiratory Rate 30 H 25 H Blood Pressure 180/102 H Pulse Oximetry 97 97 01/08/23 11:23 01/08/23 11:23 01/08/23 11:30 Pulse Rate 62 61 Respiratory Rate 25 H 24 Blood Pressure 183/102 H Pulse Oximetry 96 96 01/08/23 11:40 01/08/23 11:40 01/08/23 12:00 Pulse Rate 61 Respiratory Rate 24 Blood Pressure 186/94 H 183/100 H Pulse Oximetry 95 01/08/23 12:00 01/08/23 12:20 01/08/23 12:20 Pulse Rate 61 65 Respiratory Rate 21 19 Blood Pressure 172/103 H Pulse Oximetry 94 94 MDM - Chest Pain <Herber Lindo DO - Last Filed: 01/09/23 01:20> Lab Data 01/07/23 19:33 01/07/23 19:33 Labs: Lab Results 01/07/23 01/07/23 01/07/23 Range/Units 19:33 19:33 19:33 WBC 3.9 L (4.5-11.0) X10^3/uL RBC 4.68 (4.5-5.9) X10^6/uL Hgb 14.4 (13.5-17.5) g/dL Hct 41.2 (41-53) % MCV 88.0 (80-100) fL MCH 30.8 (26-34) PG MCHC 35.0 (30-36) % RDW 13.6 (11.6-14.8) % Plt Count 198 (150-400) X10^3/uL Neut % (Auto) 63.7 (50-75) % Lymph % (Auto) 28.3 (25-40) % [place] % (Auto) 5.5 (3-14) % Eos % (Auto) 2.1 (2-4) % Baso % (Auto) 0.4 (0-2) % Neut # (Auto) 2500 (6717-8977) /uL Lymph # (Auto) 1100 (5791-7504) /uL [place] # (Auto) 200 (0-900) /uL Eos # (Auto) 100 (0-450) /uL Baso # (Auto) 0 (0-100) /uL PT 11.5 (10.1-12.7) SECONDS INR 1.0 (0.9-1.3) APTT 49 H (26-36) SECONDS Sodium 140 (137-145) mmol/L Potassium 4.1 (3.4-5.1) mmol/L Chloride 104 (98-107) mmol/L Carbon Dioxide 25 (22-32) mmol/L BUN 18 (9-20) mg/dL Creatinine 1.05 (0.66-1.25) mg/dL Estimated GFR > 60 (>60) mL/min BUN/Creatinine Ratio 17.1 (6-22) Glucose 156 H (80-110) mg/dL Calcium 9.2 (8.4-10.2) mg/dL Magnesium 1.8 (1.6-2.3) mg/dL Total Bilirubin 0.4 (0.2-1.3) mg/dL AST 23 (17-59) IU/L ALT 22 (<50) IU/L Alkaline Phosphatase 65 (38-126) U/L Total Creatine Kinase 28 L (55-170) U/L Troponin I 0.017 (0.01-0.034) ng/mL NT-Pro-B Natriuret Pep (<125) pg/mL Total Protein 7.4 (6.3-8.2) g/dL Albumin 4.4 (3.5-5.0) g/dL Globulin 3.0 (1.7-4.1) g/dL Albumin/Globulin Ratio 1.5 (1.0-2.8) Lipase 17 L (23-300) U/L 01/07/23 01/08/23 01/08/23 Range/Units 22:05 03:10 09:00 WBC (4.5-11.0) X10^3/uL RBC (4.5-5.9) X10^6/uL Hgb (13.5-17.5) g/dL Hct (41-53) % MCV (80-100) fL MCH (26-34) PG MCHC (30-36) % RDW (11.6-14.8) % Plt Count (150-400) X10^3/uL Neut % (Auto) (50-75) % Lymph % (Auto) (25-40) % [place] % (Auto) (3-14) % Eos % (Auto) (2-4) % Baso % (Auto) (0-2) % Neut # (Auto) (2547-4001) /uL Lymph # (Auto) (4791-4510) /uL [place] # (Auto) (0-900) /uL Eos # (Auto) (0-450) /uL Baso # (Auto) (0-100) /uL PT (10.1-12.7) SECONDS INR (0.9-1.3) APTT (26-36) SECONDS Sodium (137-145) mmol/L Potassium (3.4-5.1) mmol/L Chloride (98-107) mmol/L Carbon Dioxide (22-32) mmol/L BUN (9-20) mg/dL Creatinine (0.66-1.25) mg/dL Estimated GFR (>60) mL/min BUN/Creatinine Ratio (6-22) Glucose (80-110) mg/dL Calcium (8.4-10.2) mg/dL Magnesium (1.6-2.3) mg/dL Total Bilirubin (0.2-1.3) mg/dL AST (17-59) IU/L ALT (<50) IU/L Alkaline Phosphatase (38-126) U/L Total Creatine Kinase 31 L 25 L < 20 L (55-170) U/L Troponin I 0.034 0.058 H 0.054 H (0.01-0.034) ng/mL NT-Pro-B Natriuret Pep (<125) pg/mL Total Protein (6.3-8.2) g/dL Albumin (3.5-5.0) g/dL Globulin (1.7-4.1) g/dL Albumin/Globulin Ratio (1.0-2.8) Lipase (23-300) U/L // Range/Units 09:23 WBC (4.5-11.0) X10^3/uL RBC (4.5-5.9) X10^6/uL Hgb (13.5-17.5) g/dL Hct (41-53) % MCV (80-100) fL MCH (26-34) PG MCHC (30-36) % RDW (11.6-14.8) % Plt Count (150-400) X10^3/uL Neut % (Auto) (50-75) % Lymph % (Auto) (25-40) % [place] % (Auto) (3-14) % Eos % (Auto) (2-4) % Baso % (Auto) (0-2) % Neut # (Auto) (1461-4892) /uL Lymph # (Auto) (5998-6724) /uL [place] # (Auto) (0-900) /uL Eos # (Auto) (0-450) /uL Baso # (Auto) (0-100) /uL PT (10.1-12.7) SECONDS INR (0.9-1.3) APTT (26-36) SECONDS Sodium (137-145) mmol/L Potassium (3.4-5.1) mmol/L Chloride (98-107) mmol/L Carbon Dioxide (22-32) mmol/L BUN (9-20) mg/dL Creatinine (0.66-1.25) mg/dL Estimated GFR (>60) mL/min BUN/Creatinine Ratio (6-22) Glucose (80-110) mg/dL Calcium (8.4-10.2) mg/dL Magnesium (1.6-2.3) mg/dL Total Bilirubin (0.2-1.3) mg/dL AST (17-59) IU/L ALT (<50) IU/L Alkaline Phosphatase (38-126) U/L Total Creatine Kinase (55-170) U/L Troponin I (0.01-0.034) ng/mL NT-Pro-B Natriuret Pep 168 H (<125) pg/mL Total Protein (6.3-8.2) g/dL Albumin (3.5-5.0) g/dL Globulin (1.7-4.1) g/dL Albumin/Globulin Ratio (1.0-2.8) Lipase (23-300) U/L MDM Narrative Medical decision making narrative: CC: 72-year-old male with chest pain Complicating co-morbidities: Age, hypertension, hyperlipidemia, diabetes Data collected from: Patient Medical records reviewed: Prior notes reviewed in our EMR Differential considered, but not limited to: Cardiac ischemia versus other Exam documented above, pertinent findings include: Heart rate regular, lungs clear, abdomen soft Lab Test results independently reviewed as above. Pertinent findings: No leukocytosis or left shift, initial troponin 0.017, repeat up to 0.034. Independently reviewed EKG as above Imaging studies independently reviewed: CXR without acute findings Scores Used: HEART Score 7 Consultations: Dr. Dailey (see details above) [facility] - no beds [facility] - initially took info, but then possible bed was taken by a STEMI. They request we call back after 0800 Thai/Prov - call back after 0800. No list VM - on list. Call back at 0630 Treatments: ASA, NG <Choco Rodgers MD - Last Filed: 01/09/23 06:52> Lab Data Labs: Lab Results 01/07/23 01/07/23 01/07/23 Range/Units 19:33 19:33 19:33 WBC 3.9 L (4.5-11.0) X10^3/uL RBC 4.68 (4.5-5.9) X10^6/uL Hgb 14.4 (13.5-17.5) g/dL Hct 41.2 (41-53) % MCV 88.0 (80-100) fL MCH 30.8 (26-34) PG MCHC 35.0 (30-36) % RDW 13.6 (11.6-14.8) % Plt Count 198 (150-400) X10^3/uL Neut % (Auto) 63.7 (50-75) % Lymph % (Auto) 28.3 (25-40) % [place] % (Auto) 5.5 (3-14) % Eos % (Auto) 2.1 (2-4) % Baso % (Auto) 0.4 (0-2) % Neut # (Auto) 2500 (7638-5615) /uL Lymph # (Auto) 1100 (4960-5671) /uL [place] # (Auto) 200 (0-900) /uL Eos # (Auto) 100 (0-450) /uL Baso # (Auto) 0 (0-100) /uL PT 11.5 (10.1-12.7) SECONDS INR 1.0 (0.9-1.3) APTT 49 H (26-36) SECONDS Sodium 140 (137-145) mmol/L Potassium 4.1 (3.4-5.1) mmol/L Chloride 104 (98-107) mmol/L Carbon Dioxide 25 (22-32) mmol/L BUN 18 (9-20) mg/dL Creatinine 1.05 (0.66-1.25) mg/dL Estimated GFR > 60 (>60) mL/min BUN/Creatinine Ratio 17.1 (6-22) Glucose 156 H (80-110) mg/dL Calcium 9.2 (8.4-10.2) mg/dL Magnesium 1.8 (1.6-2.3) mg/dL Total Bilirubin 0.4 (0.2-1.3) mg/dL AST 23 (17-59) IU/L ALT 22 (<50) IU/L Alkaline Phosphatase 65 (38-126) U/L Total Creatine Kinase 28 L (55-170) U/L Troponin I 0.017 (0.01-0.034) ng/mL NT-Pro-B Natriuret Pep (<125) pg/mL Total Protein 7.4 (6.3-8.2) g/dL Albumin 4.4 (3.5-5.0) g/dL Globulin 3.0 (1.7-4.1) g/dL Albumin/Globulin Ratio 1.5 (1.0-2.8) Lipase 17 L (23-300) U/L 01/07/23 01/08/23 01/08/23 Range/Units 22:05 03:10 09:00 WBC (4.5-11.0) X10^3/uL RBC (4.5-5.9) X10^6/uL Hgb (13.5-17.5) g/dL Hct (41-53) % MCV (80-100) fL MCH (26-34) PG MCHC (30-36) % RDW (11.6-14.8) % Plt Count (150-400) X10^3/uL Neut % (Auto) (50-75) % Lymph % (Auto) (25-40) % [place] % (Auto) (3-14) % Eos % (Auto) (2-4) % Baso % (Auto) (0-2) % Neut # (Auto) (0966-4145) /uL Lymph # (Auto) (1531-0900) /uL [place] # (Auto) (0-900) /uL Eos # (Auto) (0-450) /uL Baso # (Auto) (0-100) /uL PT (10.1-12.7) SECONDS INR (0.9-1.3) APTT (26-36) SECONDS Sodium (137-145) mmol/L Potassium (3.4-5.1) mmol/L Chloride (98-107) mmol/L Carbon Dioxide (22-32) mmol/L BUN (9-20) mg/dL Creatinine (0.66-1.25) mg/dL Estimated GFR (>60) mL/min BUN/Creatinine Ratio (6-22) Glucose (80-110) mg/dL Calcium (8.4-10.2) mg/dL Magnesium (1.6-2.3) mg/dL Total Bilirubin (0.2-1.3) mg/dL AST (17-59) IU/L ALT (<50) IU/L Alkaline Phosphatase (38-126) U/L Total Creatine Kinase 31 L 25 L < 20 L (55-170) U/L Troponin I 0.034 0.058 H 0.054 H (0.01-0.034) ng/mL NT-Pro-B Natriuret Pep (<125) pg/mL Total Protein (6.3-8.2) g/dL Albumin (3.5-5.0) g/dL Globulin (1.7-4.1) g/dL Albumin/Globulin Ratio (1.0-2.8) Lipase (23-300) U/L 01/08/ Range/Units 09:23 WBC (4.5-11.0) X10^3/uL RBC (4.5-5.9) X10^6/uL Hgb (13.5-17.5) g/dL Hct (41-53) % MCV (80-100) fL MCH (26-34) PG MCHC (30-36) % RDW (11.6-14.8) % Plt Count (150-400) X10^3/uL Neut % (Auto) (50-75) % Lymph % (Auto) (25-40) % [place] % (Auto) (3-14) % Eos % (Auto) (2-4) % Baso % (Auto) (0-2) % Neut # (Auto) (9948-4583) /uL Lymph # (Auto) (5221-3540) /uL [place] # (Auto) (0-900) /uL Eos # (Auto) (0-450) /uL Baso # (Auto) (0-100) /uL PT (10.1-12.7) SECONDS INR (0.9-1.3) APTT (26-36) SECONDS Sodium (137-145) mmol/L Potassium (3.4-5.1) mmol/L Chloride (98-107) mmol/L Carbon Dioxide (22-32) mmol/L BUN (9-20) mg/dL Creatinine (0.66-1.25) mg/dL Estimated GFR (>60) mL/min BUN/Creatinine Ratio (6-22) Glucose (80-110) mg/dL Calcium (8.4-10.2) mg/dL Magnesium (1.6-2.3) mg/dL Total Bilirubin (0.2-1.3) mg/dL AST (17-59) IU/L ALT (<50) IU/L Alkaline Phosphatase (38-126) U/L Total Creatine Kinase (55-170) U/L Troponin I (0.01-0.034) ng/mL NT-Pro-B Natriuret Pep 168 H (<125) pg/mL Total Protein (6.3-8.2) g/dL Albumin (3.5-5.0) g/dL Globulin (1.7-4.1) g/dL Albumin/Globulin Ratio (1.0-2.8) Lipase (23-300) U/L Imaging Data Chest x-ray: Radiologist's Impression: [address] [address] XRay Report Signed Patient: Isac Mclean MR#: [id number] : 1950 Acct:[id number] Age/Sex: 72 / M Date of Service: 01/07/23 Loc: Accession Number: [id number] ?? Procedure: XR chest 1V Ordering Provider: Herber Lindo D.O. PROCEDURE:? XR CHEST 1V ? INDICATIONS:? chest pain ? TECHNIQUE:? One view of the chest was acquired.? ? COMPARISON:? [facility], , CHEST 1 VIEW, 12/03/2015, 21:09. ? FINDINGS:? ? Surgical changes and devices:? None.? ? Lungs and pleura:? Lungs are clear.? No pleural effusions or pneumothorax.? ? Mediastinum:? Mediastinal contours appear normal.? Heart size is enlarged. ? Bones and chest wall:? No suspicious bony lesions.? Overlying soft tissues appear unremarkable.? ? IMPRESSION:? No acute pulmonary process. ? ? Dictated by: Latisha Guo M.D. on 01/07/2023 at 20:00 ? ? Approved by: Latisha Guo M.D. on 01/07/2023 at 20:00 ? MDM Narrative Medical decision making narrative: CC: 72-year-old male with chest pain Complicating co-morbidities: Age, hypertension, hyperlipidemia, diabetes Data collected from: Patient Medical records reviewed: Prior notes reviewed in our EMR Differential considered, but not limited to: Cardiac ischemia versus other Exam documented above, pertinent findings include: Heart rate regular, lungs clear, abdomen soft Lab Test results independently reviewed as above. Pertinent findings: No l eukocytosis or left shift, initial troponin 0.017, repeat up to 0.034. Repeat troponin 0.058 Independently reviewed EKG as above normal sinus rhythm rate 63 left axis deviation no ST elevation or depression Imaging studies independently reviewed: CXR without acute findings Scores Used: HEART Score 7 Consultations: Dr. Dailey (see details above) January 08, 2023 at 9:[address] [facility], they are familiar with his care in the past, I spoke with hospitalist, dr hernández, she will admit/accept patient, she would like BNP added. She agrees no heparin at this time 12:38 p.m.. [facility] hospitalist called back and they have ranged their emergency department to receive patient. [facility] - no beds [facility] - initially took info, but then possible bed was taken by a STEMI. They request we call back after 0800 Thai/Prov - call back after 0800. No list VM - on list. Call back at 0630 Treatments: AAMIR LOPEZ January 08, 2023 at 7:00 a.m., sign out from Dr Lindo, patient awaiting transfer to facility for heart catheterization. Patient on multiple awaiting list. Patient's case has been reviewed with cardiology. No heparin at this time. Patient is chest pain-free. Patient is aware need for transfer Critical Care Time <Herber Lindo, - Last Filed: 01/09/23 01:20> Critical Care Time Critical Care Time: Yes Total Critical Care Time: 60 Attestation: The high probability of a clinically significant, sudden or life threatening deterioration of the [CV] system(s) required my full and direct attention, intervention and personal management. The aggregate critical care time was [60] minutes. This time is in addition to time spent performing reported procedures but includes the following: [x] Data Review and interpretation [x] Patient assessment and monitoring of vital signs [x] Documentation [x] Medication orders and management Discharge Plan Departure Patient Disposition: [facility] Clinical Impression: Unstable angina pectoris Prescriptions: No Action [id number] [Creon] 6,000-19,000 -30,000 unit capsule,delayed rel ease(DR/EC) PO levothyroxine [Synthroid] 125 mcg tablet 125 mcg PO QDAY Qty: 90 2RF omeprazole 20 mg capsule,delayed release(DR/EC) 20 mg PO DAILY Qty: 90 3RF metformin 1,000 mg tablet extended release 24 hr 1,000 mg PO BID Qty: 180 1RF Hold Instructions: needs labs done glipizide 10 mg tablet extended release 24hr 10 mg PO DAILY Qty: 90 1RF oxybutynin chloride 5 mg tablet extended release 24hr 5 mg PO DAILY Qty: 90 3RF lisinopril 20 mg tablet 20 mg PO DAILY Qty: 90 0RF amlodipine 10 mg tablet 10 mg PO DAILY Qty: 90 0RF duloxetine 30 mg capsule,delayed release(DR/EC) See Rx Instructions .ROUTE .COMPLEX Qty: 90 3RF Dose Instruction: TAKE ONE CAPSULE BY MOUTH ONE TIME DAILY. APPOINTMENT IS NEED FOR FURTHER REFILLS Rx Instructions: TAKE ONE CAPSULE BY MOUTH ONE TIME DAILY. APPOINTMENT IS NEED FOR FURTHER REFILLS lamotrigine 150 mg tablet See Rx Instructions .ROUTE .COMPLEX Qty: 135 1RF Dose Instruction: Take 1/2 tablet by mouth in the morning and one tablet in the afternoon. Rx Instructions: Take 1/2 tablet by mouth in the morning and one tablet in the afternoon. Referrals: Haim Szymanski MD [Primary Care Provider] -
[2023-01-07] MEDS: ASPIRIN 81 MG CHEW TAB 324 MG PO (22:00)
[2023-01-07 22:26] LABS: Creatine Kinase 31 U/L (55-170)
[2023-01-07] MEDS: NITROGLYCERIN 0.4 MG SL TAB SL (22:35)
[2023-01-07 22:39] LABS: Troponin I 0.034 ng/mL (0.01-0.034)
[2023-01-08] VITALS (39 sets, daily range): BP systolic 146–207; BP diastolic 81–108; PULSE 56–90; RESP 17–33; O2SAT 94–99
[2023-01-08 03:28] LABS: Creatine Kinase 25 U/L (55-170)
[2023-01-08 03:41] LABS: Troponin I 0.058 ng/mL (0.01-0.034)
--- NOTE | 2023-01-08 06:26 | PC.NURSE ---
pt continues to walk to bathroom without any c/p states he was able to get some sleep and is feeling better
[2023-01-08 09:33] LABS: Creatine Kinase < 20 U/L (55-170)
[2023-01-08 09:43] LABS: NT-proBNP (BNP-Adult 18+) 168 pg/mL (<125)
[2023-01-08 09:47] LABS: Troponin I 0.054 ng/mL (0.01-0.034)
--- NOTE | 2023-01-08 10:44 | PC.NURSE ---
Pt just had an episode of chest pain, now resolved, vital signs obtained. Pt found to be hypertensive. Dr. Rodgers notifed. Dr. Rodgers ok'd pt to take home medications. Home med list updated in system.
[2023-01-08] MEDS: NITROGLYCERIN OINT 1 INCH/GM OINT...G. 0.5 INCH TOP (11:17)
[2023-01-08] MEDS: NITROGLYCERIN 0.4 MG SL TAB SL (12:56)
--- NOTE | 2023-01-08 12:58 | PC.NURSE ---
Nitro patch removed per Dr. escobedo, sublingual nitro given for 3/10chest pain. Will monitor cp and BP
== END 2023-01-08 13:18 | disposition short-term general hospital (02) ==
PROVIDERS: Emergency Medicine; Emergency Provider Emergency Medicine; Family Provider Family Medicine; PCP Pediatrics
DX: I20.0 Unstable angina (principal); Z79.899 Other long term (current) drug therapy
CPT/HCPCS: 36415; 71045; 80053; 82550; 83690; 83735; 83880; 84484; 85025; 85610; 85730; 93005; 99284; 99291

== ENCOUNTER → 2023-09-10 14:55 | Outpatient (CLI) | payer MEDICARE, OTHER, SELFPAY ==
[2023-09-10 15:50] LABS: Add Manual Diff / Slide Review NO; Basophils Absolute Auto 0 /uL (0-100); Basophils Percent Auto 0.5 % (0-2); Eosinophils Absolute Auto 100 /uL (0-450); Eosinophils Percent Auto 1.7 % (2-4); Hematocrit 39.1 % (41-53); Hemoglobin 13.1 g/dL (13.5-17.5); Lymphocytes Absolute Auto 1300 /uL (1100-4500); Lymphocytes Percent Auto 28.3 % (25-40); Mean Corpuscular HGB Conc 33.5 % (30-36); Mean Corpuscular Volume 89.3 fL (80-100); Monocytes Absolute Auto 300 /uL (0-900); Monocytes Percent Auto 7.3 % (3-14); Neutrophils Absolute Auto 2800 /uL (1500-7000); Neutrophils Percent Auto 62.2 % (50-75); Platelet Count 192 X10^3/uL (150-400); Red Blood Cell Count 4.38 X10^6/uL (4.5-5.9); Red Cell Distribution Width 13.3 % (11.6-14.8); White Blood Cell Count 4.5 X10^3/uL (4.5-11.0)
[2023-09-10 16:33] LABS: Alanine Aminotransferase 30 IU/L (<50); Albumin Globulin Ratio 1.3 (1.0-2.8); Alkaline Phosphatase 78 U/L (38-126); Aspartate Aminotransferase 24 IU/L (17-59); Bilirubin Total 0.8 mg/dL (0.2-1.3); Blood Urea Nitrogen 15 mg/dL (9-20); Calcium 9.7 mg/dL (8.4-10.2); Carbon Dioxide 27 mmol/L (22-32); Chloride 108 mmol/L (98-107); Estimated Glomerular Filt Rate > 60 mL/min (>60); Globulin 3.2 g/dL (1.7-4.1); Glucose 110 mg/dL (80-110); HEMOLYSIS < 15 (0-50); Potassium 3.9 mmol/L (3.4-5.1); Sodium 141 mmol/L (137-145); Total Protein 7.2 g/dL (6.3-8.2)
[2023-09-10 17:03] LABS: TSH w/ Reflex to FT4 0.53 uIU/mL (0.47-4.68)
== END ==
PROVIDERS: PCP Family Medicine; Referring Provider Family Medicine; Visit Provider Family Medicine
DX: R42 Dizziness and giddiness (principal); E03.9 Hypothyroidism, unspecified; G40.909 Epilepsy, unspecified, not intractable, without status epilepticus; I10 Essential (primary) hypertension
CPT/HCPCS: 36415; 80053; 80175; 84443; 85025

== ENCOUNTER 2023-09-12 10:15 | Outpatient (RCR) | payer MEDICARE, OTHER, SELFPAY ==
--- OUTSIDE RECORDS SUMMARY | 2023-04-24 08:58 | XMS_ITS | Referral Summary ---
Author Name Unknown Organization [facility] Address [address] [place] [address] Care Team Providers Care Sedimentationist Name Role Phone Haim Szymanski MD Primary Care Provider [phone] Reason for Referral * - Authorized Specialty Diagnoses / Procedures Referred By Codi grant Referred To Contact Cardiac Rehabilitation Diagnoses History of heart artery stent Joann Lara MD [facility] [address] [place] [address] [address] Referral ID Status Reason Start Date Expiration Date V isits Requested Visits Authorized [id number] Authorized 04/23/2023 04/17/2024 1 1 * Diagnostic Imaging (Urgent) - Pending Review Specialty Diagnoses / Procedures Referred By Codi t Referred To Contact Radiology Diagnoses Aortic root enlargement ([facility]) Procedures ECHOCARDIOGRAM COMPLETE Joann Lara MD [address] [place] [address] [address] [place] [address] Referral ID Status Reason Start Date Expiration Date Visits Requested Visits Authorized [id number] Pending Review Specialty Services Required 04/23/2023 04/17/2024 1 1 Reason for Visit * Reason Comments Heart Problem * Evaluate and Treat (Routine) - Closed Specialty Diagnoses / Procedures Referred By Contac t Referred To Contact Cardiology Diagnoses Unstable angina New pt unstable angina Procedures [place] OFFICE/OUTPATIENT ESTABLISHED MOD MDM 30-39 MIN NEW PATIENT Haim Szymanski MD [address] [place] [id number] Dalila De Luna DO [address] [place] [address] [address] [place] [address] Referral ID Status Reason Start Date Expiration Date Visits Re quested Visits Authorized [id number] Closed 01/15/2023 01/16/2024 1 1 Encounter Details Date Type Department Care Team Description 04/23/2023 2:00 PM PST Office Visit [facility] [place] [id number] [facility], [place] [address] Alberto Caceres MD [address] [place] [address] [address] [place] [address] Joann Lara MD [address] [place] [id number] ASHD (arteriosclerotic heart disease) (Primary Dx); History of heart artery stent; Hyperlipidemia, unspecified hyperlipidemia type; Essential hypertension; Diabetes mellitus type II, non insulin dependent (CMS-HCC); Aortic root enlargement (CMS-HCC) Allergies No known active allergiesdocumented as of this encounter (statuses as of 04/23/2023) Medications Medication Sig Dispensed Refills Start Date End Date Status amLODIPine (NORVASC) 10 mg tablet Take 1 tablet (10 mg total) by mouth daily 0 03/27/2023 Active aspirin 81 mg EC tablet Take 1 tablet (81 mg total) by mouth daily 0 03/27/2023 Active doxycycline (PERIOSTAT) 20 mg tablet Take 1.5 tablets (30 mg total) by mouth daily 0 03/11/2023 Active glipiZIDE (GLUCOTROL XL) 10 mg 24 hr tablet Take 1 tablet (10 mg total) by mouth daily 0 02/11/2023 Active levothyroxine (SYNTHROID) 125 mcg tablet Take 1 tablet (125 mcg total) by mouth daily 0 Active Creon 6,000-19,000 -30,000 unit capsule Take 1 capsule by mouth 4 (four) times a day 0 03/11/2023 Active lisinopriL-hydroc hlorothiazide (PRINZIDE) 20-12.5 mg per tablet Take 1 tablet by mouth daily 0 Active metFORMIN XR (GLUCOPHAGE-XR) 500 mg 24 hr tablet Take 1 tablet (500 mg total) by mouth 4 (four) times a day 0 03/25/2023 Active metoprolol succinate XL (TOPROL-XL) 25 mg 24 hr tablet Take 1 tablet (25 mg total) by mouth daily 0 03/20/2023 Active omeprazole (PriLOSEC) 20 mg capsule Take 1 capsule (20 mg total) by mouth daily 0 01/14/2023 Active prasugreL (EFFIENT) tablet Take 1 tablet (10 mg total) by mouth daily 90 tablet 3 04/23/2023 04/22/2024 Active nitroglycerin (NITROSTAT) 0.[address] 1 tablet (0.4 mg total) under the tongue every 5 (five) minutes as needed for chest pain 25 tablet 11 04/23/2023 04/22/2024 Active prasugreL (EFFIENT) tablet Take 1 tablet (10 mg total) by mouth daily 0 03/27/2023 04/23/2023 Discontinued (Reorder) documented as of this encounter (statuses as of 04/23/2023) Active Problems No known active problems documented as of this encounter (statuses as of 04/23/2023) Social History Tobacco Use Types Packs/Day Years Used Date Smoking Tobacco: Never Smokeless Tobacco: Never Tobacco Cessation:Counseling Given: Not Answered Alcohol Use Standard Drinks/Week Comments Defer 0 (1 standard drink = 0.6 oz pur e alcohol) Sex and Gender Information Value Date Recorded Sex Assigned at Not on file Gender Identity Not on file Sexual Orientation Not on file Job Start Date Occupation Industry Not on file Not on file Not on file documented as of this encounter Last Filed Vital Signs Vital Sign Reading Time Taken Comments Blood Pressure 138/80 04/23/2023 2:09 PM PST Pulse 64 04/23/2023 2:09 PM PST Temperature - - Respiratory Rate - - Oxygen Saturation - - Inhaled Oxygen Concentration - - Weight 79.4 kg (175 lb) 04/23/2023 2:09 PM PST Height 180.3 cm (5' 11) 04/23/2023 2:09 PM PST Body Mass Index 24.41 04/23/2023 2:09 PM PST documented in this encounter Progress Notes * Joann Lara MD - 04/23/2023 2:00 PM PST Restart prasugrel I am referring you to [facility]. * Joann Lara MD - 04/23/2023 2:00 PM PST Subjective Patient ID: Isac Mclean is a 72 y.o. male that presents today for had concerns including Heart Problem. HPI: 72 yo M h/o CAD, HTN, HLD, and DM here for establishing care. Patient is here by himself. Since his stent placement at 12/2022, he has done well. No recurrence of chest pain. Denies dyspnea, palpitations, lightheadedness, or syncope. He reports fatigue but does golf regularly. PROBLEM LIST: # CAD s/p BISHOP to OM and BISHOP to RI 01/09/2023 # HTN # HLD # DM Fam Hx: Mother around age 58 due to cancer. age 94 Social History Socioeconomic History Marital status: Tobacco Use Smoking status: Never Smokeless tobacco: Never Substance and Sexual Activity Alcohol use: Defer No Known Allergies Current Medication List Sig amLODIPine (NORVASC) 10 mg tablet Take 1 tablet (10 mg total) by mouth daily aspirin 81 mg EC tablet Take 1 tablet (81 mg total) by mouth daily Creon 6,000-19,000 -30,000 unit capsule Take 1 capsule by mouth 4 (four) times a day doxycycline (PERIOSTAT) 20 mg tablet Take 1.5 tablets (30 mg total) by mouth daily glipiZIDE (GLUCOTROL XL) 10 mg 24 hr tablet Take 1 tablet (10 mg total) by mouth daily levothyroxine (SYNTHROID) 125 mcg tablet Take 1 tablet (125 mcg total) by mouth daily lisinopriL-hydrochlorothiazide (PRINZIDE) 20-12.5 mg per tablet Take 1 tablet by mouth daily metFORMIN XR (GLUCOPHAGE-XR) 500 mg 24 hr tablet Take 1 tablet (500 mg total) by mouth 4 (four) times a day metoprolol succinate XL (TOPROL-XL) 25 mg 24 hr tablet Take 1 tablet (25 mg total) by mouth daily omeprazole (PriLOSEC) 20 mg capsule Take 1 capsule (20 mg total) by mouth daily prasugreL (EFFIENT) tablet (Discontinued) Take 1 tablet (10 mg total) by mouth daily nitroglycerin (NITROSTAT) 0.[address] 1 tablet (0.4 mg total) under the tongue every 5 (five) minutes as needed for chest pain prasugreL (EFFIENT) tablet Take 1 tablet (10 mg total) by mouth daily Review of Systems Constitutional: Positive for fatigue. Negative for unexpected weight change. Eyes: Negative for itching and visual disturbance. Respiratory: Negative for chest tightness and shortness of breath. Cardiovascular: Negative for chest pain, palpitations and leg swelling. Gastrointestinal: Negative for blood in stool. Endocrine: Negative for polydipsia. Genitourinary: Negative for hematuria. Skin: Negative for rash. Neurological: Positive for dizziness and light-headedness. Negative for weakness. Hematological: Does not bruise/bleed easily. Psychiatric/Behavioral: The patient is not nervous/anxious. Objective BP 138/80 (BP Location: Left arm, Patient Position: Sitting) Pulse 64 Ht 1.803 m Wt 79.4 kg BMI 24.41 kg/m?? Physical Exam: General appearance: No apparent distress, well-nourished, pleasant, cooperative HEET: Normocephalic atraumatic, no scleral icterus, tongue midline, mucous membranes moist Neck: supple Cardiovascular: RRR, normal S1 and normal S2, no murmurs/ rubs/gallops, PMI nondisplaced, no JVD, no peripheral edema Respiratory: Good aeration, CTAB Abdomen: Soft, nontender, nondistended, + bowel sounds Neuro: Alert, no facial droop, tongue midline, no gross motor deficits Psych: appropriate affect Skin: no rashes on face, neck, and lower extremities Echo 01/09/2023: normal LV, aorta root measured 4.5cm. ECG 01/08/2023: sinus rhythm with left axis deviation and artifacts. Assessment/Plan Comments: 1. ASHD (arteriosclerotic heart disease) Basic metabolic panel, Complete blood count without diff, Lipid panel 2. History of heart artery stent Ambulatory Referral to Cardiac Rehabilitation 3. Hyperlipidemia, unspecified hyperlipidemia type 4. Essential hypertension 5. Diabetes mellitus type II, non insulin dependent ([facility]) 6. Aortic root enlargement ([facility]) ECHOCARDIOGRAM COMPLETE # CAD s/p BISHOP to OM and BISHOP to RI 01/09/2023. No angina since stent placement. - Continue aspirin 81mg daily - Continue prasugrel 10mg daily for one year (stop 01/10/2024). Patient ran out of it one week ago and nobody has filled it. - Continue metoprolol XL 25mg daily - Continue lisinopril-hydrochlorothiazide 20-12.5mg daily - Continue amlodipine 10mg daily - Cardiac rehab # Enlarged aortic root: - Repeat Echo # HTN # HLD # DM F/U in 8 months with echo and labs. Med filled. Electronically signed by Joann Lara MD 04/23/2023 2:35 PM documented in this encounter Plan of Treatment Scheduled Orders Name Type Priority Associated Diagnoses Orde r Schedule ECHOCARDIOGRAM COMPLETE Imaging Urgent ( Imaging Only) Aortic root enlargement ([facility]) Expected: 12/22/2023, Expires: 11/13/2026 Basic metabolic panel Lab Routine ASHD (arteriosclerotic heart disease) Expected: 12/22/2023, Expires: 10/21/2024 Complete blood count without diff Lab Routine ASHD (arteriosclerotic heart disease) Expected: 12/22/2023, Expires: 10/21/2024 Lipid panel Lab Routine ASHD (arteriosclerotic heart disease) Expected: 12/22/2023, Expires: 04/23/2024 Scheduled Referrals Name Type Priority Associated Diagnoses Order Schedule Ambulatory Referral to Cardiac Rehabilitation Outpatient Referral Routine History of heart artery stent Ordered: 04/23/2023 documented as of this encounter Visit Diagnoses Diagnosis ASHD (arteriosclerotic heart disease)- Primary Coronary atherosclerosis of unspecified type of vessel, clark's point or graft History of heart artery stent Hyperlipidemia, unspecified hyperlipidemia type Essential hypertension Unspecified essential hypertension Diabetes mellitus type II, non insulin dependent ([facility]) Type II or unspecified type diabetes mellitus without mention of complication, not stated as uncontrolled Aortic root enlargement ([facility]) documented in this encounter Care Teams Sedimentationist Relationship Specialty Start Date End Date Haim Szymanski MD [address] [place] [address] [id number] PCP - General Internal Medicine 01/15/23 documented as of this encounter
== END 2023-09-12 12:15 ==
LOC: CAR 10:15
PROVIDERS: PCP Family Medicine; Referring Provider Internal Medicine Cardiovascular Disease; Visit Provider Internal Medicine Cardiovascular Disease
DX: Z95.5 Presence of coronary angioplasty implant and graft (principal)
CPT/HCPCS: 93798

== ENCOUNTER → 2023-09-26 10:58 | Outpatient (CLI) | payer MEDICARE, OTHER, SELFPAY ==
[2023-09-26 17:29] LABS: Hemoglobin A1C% w Est Avg Glu 6.3 % (4.0-6.0)
== END ==
PROVIDERS: PCP Family Medicine; Referring Provider Family Medicine; Visit Provider Family Medicine
DX: E13.9 Other specified diabetes mellitus without complications (principal); S36.209S Unspecified injury of unspecified part of pancreas, sequela
CPT/HCPCS: 36415; 83036

== ENCOUNTER → 2024-03-30 09:44 | Outpatient (CLI) | payer MEDICARE, OTHER, SELFPAY ==
[2024-03-30 12:46] LABS: Hematocrit 37.2 % (41-53); Hemoglobin 12.9 g/dL (13.5-17.5); Mean Corpuscular HGB Conc 34.5 % (30-36); Mean Corpuscular Hemoglobin 30.4 PG (26-34); Platelet Count 187 X10^3/uL (150-400); Red Blood Cell Count 4.23 X10^6/uL (4.5-5.9); Red Cell Distribution Width 14.3 % (11.6-14.8); White Blood Cell Count 4.2 X10^3/uL (4.5-11.0)
[2024-03-30 13:06] LABS: BUN Creatinine Ratio 13.7 (6-22); Blood Urea Nitrogen 13 mg/dL (9-20); Calcium 9.4 mg/dL (8.4-10.2); Carbon Dioxide 27 mmol/L (22-32); Chloride 105 mmol/L (98-107); Cholesterol 100 mg/dL (140-199); Estimated Glomerular Filt Rate > 60 mL/min (>60); Glucose 147 mg/dL (80-110); HDL Cholesterol 30 mg/dL (40-60); HEMOLYSIS < 15 (0-50); LDL Cholesterol Calculated 46 mg/dL (<100); Potassium 4.3 mmol/L (3.4-5.1); Sodium 140 mmol/L (137-145); Triglycerides 122 mg/dL (35-150)
== END ==
LOC: LAB 09:45
PROVIDERS: PCP Family Medicine; Referring Provider Internal Medicine Cardiovascular Disease; Visit Provider Internal Medicine Cardiovascular Disease
DX: I25.10 Atherosclerotic heart disease of native coronary artery without angina pectoris (principal)
CPT/HCPCS: 36415; 80048; 80061; 85027

== ENCOUNTER → 2024-04-30 14:59 | Outpatient (CLI) | payer MEDICARE, OTHER, SELFPAY ==
--- NOTE | 2024-04-30 | DI.ECHO.S_ITS ---
[facility] : : [address] [place] [address] : : [id number] : : Phone: [phone] Echocardiogram Report + + :Name: PATRICIA MARCIAL Study Date: 04/30/2024 Height: 71 in : :Hospital ReadingLocation: Weight: 180 lb : : Gender: Male BSA: 2.0 m2 : :: 1950 Age: 73 yrs BP: 157/94 mmHg: :Reason For Study: AORTIC ROOT ENLARGEMENT : :Ordering Physician: ARUN, : :NINO Performed By: Fito Morel : :Referring: NINO LARA : + + Interpretation Summary 1) Mildly increased left ventricular thickness (concentric) with normal size, normal wall motion, and normal systolic function (EF 55-60%). 2) Normal right ventricular size and function. 3) No significant valvular abnormalities. 4) The aortic root is mildly dilated at 4.1cm. 5) No prior Echo available for comparison. Procedure: A two-dimensional transthoracic echocardiogram with color flow and Doppler was performed. The study quality was technically good. There is no prior echocardiogram noted for this patient. The patient was in normal sinus rhythm during the exam. Left Ventricle: The left ventricle is normal in size. Left ventricular wall thickness is mildly increased. There is no ventricular septal defect visualized. The ejection fraction is estimated to be 55-60%. There are no focal wall motion abnormalities. Diastolic parameters suggest a relaxation abnormality of the left ventricle, consistent with probable normal filling pressures. Right Ventricle: The right ventricle is normal in size and function. Atria: The left atrium is moderately dilated. The right atrium is mildly dilated. There is no Doppler evidence for an atrial septal defect. Mitral Valve: The mitral valve leaflets appear mildly thickened, but open well. There is mild mitral annular calcification. There is trace mitral regurgitation. Aortic Valve: The aortic valve is trileaflet. The aortic valve opens well. The aortic valve is slightly calcified. There is no aortic valve stenosis. There is mild aortic regurgitation. Tricuspid Valve: The tricuspid valve is normal in structure and function. There is mild tricuspid regurgitation. The right ventricular systolic pressure is estimated to be at least 31 mmHg based on an estimated right atrial pressure of 3 mm Hg. Pulmonic Valve: The pulmonic valve is normal in structure and function. There is trace pulmonic regurgitation. Great Vessels: The aortic root is mildly dilated. The ascending aorta is at the upper limits of normal in size. The pulmonary artery is normal size. The IVC is of normal diameter and collapses greater than 50% with a sniff. This suggests a low right atrial pressure of 3 mm Hg. Pericardium/ Pleura There is no pericardial effusion. There is no pleural effusion. MMode/2D Measurements & Calculations LVIDd: 4.8 cm LVOT diam: 2.4 cm LVIDs: 2.9 cm Ao root diam: 4.1 cm FS: 38.5 % asc Aorta Diam: 4.0 cm EPSS: 0.91 cm IVSd: 1.1 cm LVPWd: 1.2 cm LV pathak. diameter/BSA (cm/m^2): 2.4 LV sys. diameter/BSA (cm/m^2): 1.5 LA A2 area: 21.6 cm2 RA long axis: 5.9 cm LA A4 area: 19.4 cm2 RA area: 22.5 cm2 LA length (vol): 4.6 cm RA vol: 72.8 ml LA vol: 77.2 ml RA : 36.1 ml/m2 LA vol index: 38.3 ml/m2 RVD1 (basal): 3.7 cm RVD2 (mid): 3.4 cm TAPSE: 3.2 cm Doppler Measurements & Calculations Ao V2 max: 103.3 cm/sec LVOT Max Fazal: 98.5 cm/sec Ao V2 mean: 68.7 cm/sec LV V1 max P.9 mmHg Ao max P.3 mmHg LV V1 VTI: 21.0 cm Ao mean P.2 mmHg JESICA(I,D): 4.0 cm2 Ao V2 VTI: 23.3 cm JESICA(V,D): 4.2 cm2 sev ratio: 0.90 JESICA indexed to BSA (cm^2/m^2): 2.0 MV E max fazal: 37.8 cm/sec TR max fazal: 267.0 cm/sec MV A max fazal: 58.5 cm/sec TR max P.5 mmHg MV E/A: 0.64 PA V2 max: 67.5 cm/sec Med Peak E' Fazal: 4.1 cm/sec PA V2 mean: 46.7 cm/sec E/E' med: 9.2 PA mean P.97 mmHg Lat Peak E' Fazal: 4.8 cm/sec PA pr(Accel): 32.8 mmHg E/E' lat: 7.8 E/e' average: 8.5 MV dec time: 0.30 sec SV(LVOT): 93.1 ml Reading Physician:04:15 PM
== END ==
PROVIDERS: PCP Family Medicine; Referring Provider Internal Medicine Cardiovascular Disease; Visit Provider Internal Medicine Cardiovascular Disease
DX: I08.3 Combined rheumatic disorders of mitral, aortic and tricuspid valves (principal); I77.89 Other specified disorders of arteries and arterioles
CPT/HCPCS: 93306

== ENCOUNTER → 2024-06-19 08:54 | Outpatient (CLI) | payer MEDICARE, OTHER, SELFPAY ==
--- NOTE | 2024-06-19 08:56 | DI.RAD.S_ITS ---
PROCEDURE: XR HAND RT 2V INDICATIONS: new right hand swelling/redness TECHNIQUE: 2 views of the hand(s) acquired. COMPARISON: None. FINDINGS: Bones: No fractures or dislocations. Severe triscaphe joint degeneration. Carpal bones are normally aligned. No suspicious bony lesions. Soft tissues: No suspicious soft tissue calcifications. Chondrocalcinosis of the radiocarpal joint. 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 Chondrocalcinosis is present. Differential diagnosis includes but is not limited to hemochromatosis, hyperparathyroidism and CPPD. Dictated by: Macario Gillespie M.D. on 06/19/2024 at 11:32 Approved by: Macario Gillespie M.D. on 06/19/2024 at 11:34
[2024-06-19 09:59] LABS: Uric Acid 2.3 mg/dL (3.5-8.5)
[2024-06-19 10:01] LABS: Add Manual Diff / Slide Review NO; Basophils Absolute Auto 100 /uL (0-100); Basophils Percent Auto 0.8 % (0-2); Eosinophils Absolute Auto 400 /uL (0-450); Eosinophils Percent Auto 2.9 % (2-4); Hematocrit 37.4 % (41-53); Hemoglobin 12.4 g/dL (13.5-17.5); Lymphocytes Absolute Auto 900 /uL (1100-4500); Lymphocytes Percent Auto 6.3 % (25-40); Mean Corpuscular Hemoglobin 29.3 PG (26-34); Mean Corpuscular Volume 88.6 fL (80-100); Monocytes Absolute Auto 900 /uL (0-900); Monocytes Percent Auto 6.3 % (3-14); Neutrophils Absolute Auto 11900 /uL (1500-7000); Neutrophils Percent Auto 83.7 % (50-75); Platelet Count 397 X10^3/uL (150-400); Red Blood Cell Count 4.22 X10^6/uL (4.5-5.9); Red Cell Distribution Width 13.6 % (11.6-14.8); White Blood Cell Count 14.2 X10^3/uL (4.5-11.0)
[2024-06-19 10:28] LABS: TSH w/ Reflex to FT4 3.77 uIU/mL (0.47-4.68)
== END ==
PROVIDERS: PCP Family Medicine; Referring Provider Family Medicine; Visit Provider Family Medicine
DX: M11.241 Other chondrocalcinosis, right hand (principal); M79.89 Other specified soft tissue disorders; C25.9 Malignant neoplasm of pancreas, unspecified; R23.8 Other skin changes; R22.31 Localized swelling, mass and lump, right upper limb; M79.641 Pain in right hand; R50.9 Fever, unspecified
CPT/HCPCS: 36415; 73120; 84443; 84550; 85025; 87040

== ENCOUNTER → 2024-06-25 10:06 | Outpatient (CLI) | payer MEDICARE, OTHER, SELFPAY ==
[2024-06-25 10:49] LABS: Add Manual Diff / Slide Review NO; Basophils Absolute Auto 0 /uL (0-100); Basophils Percent Auto 0.5 % (0-2); Eosinophils Absolute Auto 300 /uL (0-450); Eosinophils Percent Auto 3.2 % (2-4); Hematocrit 37.4 % (41-53); Hemoglobin 12.3 g/dL (13.5-17.5); Lymphocytes Absolute Auto 300 /uL (1100-4500); Lymphocytes Percent Auto 2.9 % (25-40); Mean Corpuscular HGB Conc 32.8 % (30-36); Mean Corpuscular Volume 88.3 fL (80-100); Monocytes Absolute Auto 300 /uL (0-900); Monocytes Percent Auto 3.4 % (3-14); Neutrophils Absolute Auto 9200 /uL (1500-7000); Platelet Count 216 X10^3/uL (150-400); Red Blood Cell Count 4.24 X10^6/uL (4.5-5.9); Red Cell Distribution Width 13.9 % (11.6-14.8); White Blood Cell Count 10.2 X10^3/uL (4.5-11.0)
== END ==
PROVIDERS: PCP Family Medicine; Referring Provider Family Medicine; Visit Provider Family Medicine
DX: M79.641 Pain in right hand (principal); R22.31 Localized swelling, mass and lump, right upper limb; D72.829 Elevated white blood cell count, unspecified
CPT/HCPCS: 36415; 85025